=== PATIENT | female | born 1950 | race Caucasian/White ===

== ENCOUNTER 2019-08-07 08:20 | Outpatient (CLI) | payer MEDICARE, SELFPAY ==
--- NOTE | ~2019-08-07 | XR_ITS ---
EXAMINATION: XR abdomen/kub 1V INDICATION: Microscopic hematuria TECHNIQUE: Supine views of the abdomen were obtained on 2 radiographs. COMPARISON: 05/23/2008 FINDINGS: There are phleboliths of the left pelvis. The bowel gas pattern is normal. There is severe lumbar spondylosis. Advanced osteoarthritis is noted in the left hip. IMPRESSION: 1. No radiographic correlate for the patient's symptoms. Reviewed, dictated and finalized at location A.
--- NOTE | ~2019-08-07 | CT_ITS ---
EXAMINATION: CT abdomen pelvis wo/w con DATE: 08/07/2019 09:11 INDICATION: Microscopic hematuria TECHNIQUE: Computed tomography (CT) of the abdomen and pelvis was performed without intravenous contr ast. CT of the abdomen and pelvis was then performed with a total of 130 mL Omnipaque 350 intravenous contrast using a double-bolus technique for simultaneous opacification of the renal parenchyma and r enal collecting system. The dose-length product (DLP) was 2599.48 mGy-cm. Automated exposure control and iterative reconstruction technique were employed. COMPARISON: 05/23/2008 FINDINGS: Minimal dependent atelectasis is present in the lung bases. The heart size is normal. The l iver, spleen, pancreas, gallbladder, and adrenal glands are normal. Proteinaceous cysts of the kidney s measure up to 2.2 cm on the left. 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 No stones are identified in the kidneys, ureters, or bladder. There is no hydronephrosis or hydroureter. No suspici ous renal or urothelial lesion is identified. Gas in the urinary bladder likely reflects recent instr umentation. No pathologically enlarged abdominal or pelvic lymph nodes are identified. There is no fr ee intraperitoneal gas or evidence of bowel obstruction. The appendix is normal. Calcified uterine fi broids are noted. There is advanced left hip osteoarthritis. Mild to moderate right hip osteoarthriti s is noted. There is severe lumbar spondylosis. IMPRESSION: 1. No suspicious renal or urothelial lesion seen, no hydronephrosis, no hydroureter, and no urinary t ract calculi. 2. Bilateral duplicated collecting systems. Reviewed, dictated and finalized at location A. IMPRESSION: 1. No suspicious renal or urothelial lesion seen, no hydronephrosis, no hydrour eter, and no urinary tract calculi. 2. Bilateral duplicated collecting systems.
[2019-08-07 08:48] LABS: Estimated Glomerular Filt Rate > 60
== END 2019-08-07 08:21 | disposition home or self-care (01) ==
PROVIDERS: PCP Family Medicine; Visit Provider Urology
DX: R31.29 Other microscopic hematuria (principal)
CPT/HCPCS: 36415; 74018; 74178; Q9967

== ENCOUNTER 2019-10-30 13:48 | Outpatient (CLI) | payer MEDICARE, SELFPAY ==
--- NOTE | 2019-10-30 14:41 | ECG_ITS ---
Measurements Intervals [place] Rate: 64 P: 11 OH: 188 QRS: -4 QRSD: 89 T: 46 QT: 392 QTc: 406 Interpretive Statements SINUS RHYTHM DELAYED PRECORDIAL R/S TRANSITION MINIMAL Q WAVES- INFERIOR LEADS BORDERLINE ECG Electronically Signed On 10-30-2019 15:38:36 CDT by Dawood Rushing D.O.
[2019-10-30 15:06] LABS: Basophils Absolute Auto 0.1 K/mm3 (0.0-0.1); Basophils Percent Auto 0.9 % (0.2-1.2); Eosinophils Absolute Auto 0.3 K/mm3 (0-0.3); Eosinophils Percent Auto 4.3 % (0-4.4); Hematocrit 42.2 % (37.0-47.0); Hemoglobin 14.1 g/dL (12.0-15.0); Immature Granulocyte Absolute 0.01 K/mm3 (0.00-0.031); Immature Granulocyte Percent A 0.2 % (0-0.5); Lymphocytes Absolute Auto 1.44 K/mm3 (0.9-3.2); Lymphocytes Percent Auto 22.2 % (18.3-44.2); Mean Corpuscular HGB Conc 33.4 g/dl (32-36); Mean Corpuscular Volume 95.7 fl (80-100); Mean Platelet Volume 10.8 fl (7.4-10.4); Monocytes Absolute Auto 0.7 K/mm3 (0.1-0.6); Monocytes Percent Auto 11.4 % (2.6-8.5); Platelet Count Result 251 k/mm3 (150-375); Red Blood Count 4.41 M/mm3 (4.2-5.4); Red Cell Distribution Width 12.5 % (11.5-14.5); White Blood Count 6.5 K/mm3 (4.5-10.0)
[2019-10-30 15:13] LABS: Albumin Level 4.6 g/dL (3.5-5.1); Hemoglobin A1C 5.7 % (<5.7)
[2019-10-30 15:15] LABS: Blood Urea Nitrogen 27 mg/dL (7-17); Calcium 9.6 mg/dL (8.4-10.2); Carbon Dioxide 31 mmol/L (22-30); Chloride 102 mmol/L (98-107); Estimated Glomerular Filt Rate 50; Glucose 88 mg/dL (65-105); Potassium 3.9 mmol/L (3.4-5.0); Sodium 141 mmol/L (137-145)
[2019-10-30 15:16] LABS: Urine Cotinine NEGATIVE
== END 2019-10-30 13:49 | disposition home or self-care (01) ==
LOC: ANHSURGERY 13:52
PROVIDERS: Anesthesiology; PCP Family Medicine; Visit Provider Orthopaedic Surgery
DX: M16.12 Unilateral primary osteoarthritis, left hip (principal); I10 Essential (primary) hypertension; R94.31 Abnormal electrocardiogram [ECG] [EKG]
CPT/HCPCS: 36415; 80048; 80307; 82040; 83036; 85025; 86850; 86900; 86901; 93005

== ENCOUNTER 2019-11-06 00:57 | Outpatient (CLI) | payer MEDICARE, SELFPAY ==
[2019-11-06 19:21] LABS: SARS-CoV-2 RNA PCR Negative
== END 2019-11-06 00:58 | disposition home or self-care (01) ==
LOC: ANHCOVIDDT 00:57
PROVIDERS: PCP Family Medicine; Visit Provider Orthopaedic Surgery
DX: Z01.812 Encounter for preprocedural laboratory examination (principal); Z11.59 Encounter for screening for other viral diseases
CPT/HCPCS: 87635; C9803; U0003

== ENCOUNTER 2019-11-08 02:27 | Day surgery (SDC) | payer MEDICARE, SELFPAY ==
[2019-10-30 13:58] VITALS: BMI 36.3
[2019-10-30 14:43] VITALS: BP 145/76; PULSE 70; RESP 18; TEMP 36.8; O2SAT 98
--- NOTE | 2019-11-01 09:57 | PM.IMHP ---
H&P: HPI History of Present Illness Chief complaint: OA Left Hip Narrative: Carolyn Davidson is a 69 year old female who sees Dr. Godwin regarding her left hip. The patient has a chronic ongoing history of pain localized left hip and groin that radiates into her thigh. It is worse with activity somewhat relieved by rest. The patient has start-up pain rest pain and night pain, notes she can not stand or walk for long periods and has trouble getting around. She notes limitation of motion and her ability to go about her daily activities that she would like. The patient has failed a course of conservative measures including anti-inflammatories and activity modification without significant long-term relief. X-rays at this time show advanced primary osteoarthritis in the left hip joint. At this point the patient has discuss further treatment options in detail with Dr. Godwin including risks benefits limitations and alternatives of surgery in great detail she would now like to proceed with a left total hip arthroplasty. Review of Systems Review of Systems: All systems reviewed & are unremarkable except as noted in HPI and below PMFSH Past Medical History Medical History Arthritis Benign essential HTN Chronic pain GERD (gastroesophageal reflux disease) Mixed hyperlipidemia OAB (overactive bladder) Presence of bilateral total knee joint prostheses Surgical History Surgical History History of bilateral knee arthroplasty Family History Family History Mother Hypertension, Onset Age: 61 Acute myocardial infarction, Onset Age: 61 Family history of arthritis, Onset Age: 61 Sibling Patient's sister is in good health Patient's brother is in good health Father Family history of malignant neoplasm, Onset Age: 49 Social History Social History Smoking status: Never smoker Second hand tobacco smoke exposure: No Additional smoking assessment comments: DENIES ANY FORM OF TOBACCO USE Alcohol intake: current Substance use: never Substance use type: does not use Gender identity (if verbalized by the patient): Female Spiritual care concerns: No Meds Home Medications and Allergies Home Medications Medication Instructions Recorded Confirmed Type amlodipine 5 mg-benazepril 20 mg 1 cap PO DAILY 09/05/19 10/30/19 History capsule hydrochlorothiazide 25 mg tablet 25 mg PO DAILY 09/05/19 10/30/19 History multivit with 1 tablet PO DAILY 09/05/19 10/30/19 History vydpknwr-ilwj-WX-lutein 8 mg iron-400 mcg-300 mcg tablet omega-3 fatty acids 1,250 mg 1,250 mg PO DAILY 09/05/19 10/30/19 History capsule trazodone 50 mg tablet 50 mg PO .QHS tablet 09/05/19 10/30/19 History meloxicam 15 mg tablet 15 mg PO DAILY #90 tablet 09/12/19 10/30/19 Rx omeprazole 40 mg capsule,delayed 40 mg PO DAILY #90 cap 10/10/19 10/30/19 Rx release atorvastatin 20 mg PO HS 10/30/19 10/30/19 History calcium carbonate [Tums] 200 mg PO BID 10/30/19 10/30/19 History tramadol 50 mg PO BID PRN 10/30/19 10/30/19 History Allergies Allergy/AdvReac Type Severity Reaction Status Date / Time No Known Allergies Allergy Unverified 10/30/19 13:59 Exam Narrative: Exam Narrative: The patient is a well-developed well-nourished female no acute distress. She is alert and oriented x3. Normal mood and affect. HEENT exam within normal limits. Heart regular rate rhythm. Lungs clear auscultation. Abdomen benign. Extremities showed the patient's left hip to be painful with manipulation range of motion. She has limited internal external rotation pain with extremes of motion. She is noted to have a positive Stinchfield positive KIRSTEN exam. Patient walks with a mild limp because of her left groin pain. N
[2019-11-08] VITALS (16 sets, daily range): BP systolic 111–170; BP diastolic 60–93; PULSE 58–89; RESP 10–20; TEMP 35.7–36.6; O2SAT 93–100; BMI 35.9
--- NOTE | ~2019-11-08 | XR_ITS ---
XR surgery orthopedic DATE: 11/08/2019 09:01 INDICATION: Left total hip replacement TECHNIQUE: 2 AP intraoperative left hip views COMPARISON: None FINDINGS: Status post left femoral head and neck resection and left total hip replacement. There is e xpected operative subcutaneous emphysema. IMPRESSION: Left total hip arthroplasty Reviewed, dictated and finalized at Location A. Reviewed, dictated and finalized at location B. IMPRESSION: Left total hip arthroplasty
[2019-11-08] MEDS: LACTATED RINGERS 1,000 ML 30 ML IV CONT ×2 (06:30→09:38)
--- NOTE | 2019-11-08 06:49 | WPDANESEPPF ---
Anes - Initial Pre Proc Eval Procedure: Operation Date: 11/08/19 07:30 Proposed Procedures p Left Total Hip Arthroplasty - Carloz Godwin MD Date/Time: 11/08/19 06:49 Surgeon: Carloz Godwin MD Pre Op Diagnosis: OA Left Hip Patient Data Age: 69 Gender: F Height: 5 ft 8 in Weight: 107 kg Last Vital Signs Temp 36.2 C L 11/08/19 06:15 Pulse 73 11/08/19 06:15 Resp 18 11/08/19 06:15 BP 153/77 H 11/08/19 06:15 Pulse Ox 96 11/08/19 06:15 Allergies Allergy/AdvReac Type Severity Reaction Status Date / Time No Known Allergies Allergy Unverified 10/30/19 13:59 Home Medications Medication Instructions Recorded Confirmed Type amlodipine 5 mg-benazepril 20 mg 1 cap PO DAILY 09/05/19 10/30/19 History capsule hydrochlorothiazide 25 mg tablet 25 mg PO DAILY 09/05/19 10/30/19 History multivit with 1 tablet PO DAILY 09/05/19 10/30/19 History rwigmcrx-gubu-PC-lutein 8 mg iron-400 mcg-300 mcg tablet omega-3 fatty acids 1,250 mg 1,250 mg PO DAILY 09/05/19 10/30/19 History capsule trazodone 50 mg tablet 50 mg PO .QHS tablet 09/05/19 10/30/19 History meloxicam 15 mg tablet 15 mg PO DAILY #90 tablet 09/12/19 10/30/19 Rx omeprazole 40 mg capsule,delayed 40 mg PO DAILY #90 cap 10/10/19 10/30/19 Rx release atorvastatin 20 mg PO HS 10/30/19 10/30/19 History calcium carbonate [Tums] 200 mg PO BID 10/30/19 10/30/19 History tramadol 50 mg PO BID PRN 10/30/19 10/30/19 History Patient hx anesthesia problems: none Family hx anesthesia problems: none PMFSH Past Medical History Medical History Arthritis Benign essential HTN Chronic pain GERD (gastroesophageal reflux disease) Mixed hyperlipidemia OAB (overactive bladder) Presence of bilateral total knee joint prostheses Surgical History Surgical History History of bilateral knee arthroplasty Family History Family History Mother Hypertension, Onset Age: 61 Acute myocardial infarction, Onset Age: 61 Family history of arthritis, Onset Age: 61 Sibling Patient's sister is in good health Patient's brother is in good health Father Family history of malignant neoplasm, Onset Age: 49 Social History Social History Smoking status: Never smoker Second hand tobacco smoke exposure: No Additional smoking assessment comments: DENIES ANY FORM OF TOBACCO USE Alcohol intake: current Alcohol use details: ONE DRINK PER MONTH DAIQUIRI Substance use: never Substance use type: does not use Living arrangements: with family Gender identity (if verbalized by the patient): Female Spiritual care concerns: No Anes - Eval Final PreProcedure Day of Procedure 11/08/19 06:49 Patient weight: obese Heart: regular rate and rhythm Lungs: clear to auscultation Airway: Mallampati scale class II Neurological: alert and oriented Last oral intake: >/= 8 hours ASA classification: III Emergent: no Anesthetic plan: proceed Anesthesia type and monitoring: general ETT and standard monitoring Informed Consent: The patient's anesthetic plan and its attendant risks and benefits were discussed with the patient/family/POA. Questions were solicited and answers provided to the satisfaction of the patient/family/POA.
[2019-11-08] MEDS: KETOROLAC 15 MG/ML VIAL (*BKC) IV PUSH (06:50)
[2019-11-08] MEDS: TRANEXAMIC ACID 1,000MG/ISO100 1,000 MG/100 ML BAG 200 MG IVPB (06:50)
[2019-11-08] MEDS: ACETAMINOPHEN 500 MG TABLET 1000 MG PO (06:50)
--- NOTE | 2019-11-08 07:05 | WPDHPUPDATE1 ---
History and Physical Update Update Date/Time: 11/08/19 07:05 History and Physical has been reviewed, including an updated exam of the patient. There are NO changes in the patient's condition. Risks, benefits, and alternatives have been discussed and questions answered. Patient agrees to proceed with procedure.
[2019-11-08] MEDS: ceFAZolin 2 GM/D5W 50 ML 2 GM/50 ML BAG IVPB (07:21)
--- NOTE | 2019-11-08 08:56 | PM.PROC ---
Procedure Note - Detailed Date of procedure: 11/08/19 Pre-op diagnosis: OA Left Hip Post-op diagnosis: same Procedure performed: [Left] total hip arthroplasty Description of procedure: Patient was brought to the operating room and anesthetic was administered. The patient was placed with the [side] up and steriley prepped and draped in the usual manner. Longitudinal incision was done, dissection carried down to the fascia. A Hardinge type approach was used and the femoral head was dislocated anteriorly. Femoral head was removed a finger breath above the lesser trochanter. The acetabulum was serially reamed to accept a [54] component. This was impacted into place and secured with 2 25mm screws. A high wall liner was placed. The femur was reamed and broached to accept a [10] component which was impacted into place. A plus [3] ball and neck were placed and the hip was put through full range of motion. The hip was noted to be stable. The wounds were then closed in a layer fashion using #5 ethibond, 2 vicryl, 2-0 vicryl and vida. Patient left the operating room in satisfactory condition. Anesthesia: GETA Surgeon: Carloz Godwin MD Sanitation Worker Cleaning Machinery: Duc Schaefer Estimated blood loss (mL): 600 Drains: No Packing: No Pathology: none sent Complications: No immediate complications Condition: stable Disposition: PACU Findings: Arthritis
--- NOTE | 2019-11-08 10:42 | SUR.PHASEI ---
[address] kaur aware of continued pain with fentanyl given,orders received, dilaudid given for pain.
[2019-11-08 12:18] LABS: Hematocrit 39.1 % (37.0-47.0); Hemoglobin 13.2 g/dL (12.0-15.0)
[2019-11-08] MEDS: DEXTROSE 5%/0.45% SOD CHL 1,000 ML 80 ML IV CONT (12:48)
[2019-11-08] MEDS: MORPHINE SULFATE 4 MG/ML INJ 3 MG IV PUSH (15:00)
[2019-11-08] MEDS: amLODIPine BESYLATE 5 MG TABLET PO (16:15)
[2019-11-08] MEDS: DOCUSATE SODIUM 100 MG CAPSULE PO (16:15)
[2019-11-08] MEDS: lisinopriL 20 MG TABLET PO (16:15)
[2019-11-08] MEDS: hydroCHLOROthiazide 25 MG TABLET PO (16:15)
[2019-11-08] MEDS: CELECOXIB 200 MG CAPSULE PO (16:15)
--- NOTE | 2019-11-08 16:51 | PM.IMCN ---
Assessment and Plan Assessment and plan (1) History of total left hip arthroplasty: Code(s): Z96.642 - Presence of left artificial hip joint Status: Acute Assessment and Plan: per Dr. Enrique today. DVT prophylaxis per Dr. Godwin. Patient has SCDs ordered. Patient plans to go home and rehab. Pain management per Ortho. Patient is already been up in the chair. She is also on Xarelto. (2) Benign essential HTN: Code(s): I10 - Essential (primary) hypertension Status: Acute Assessment and Plan: Hydrochlorothiazide has continued as well as lisinopril. Monitor basic metabolic panel please (3) Mixed hyperlipidemia: Code(s): E78.2 - Mixed hyperlipidemia Status: Acute Assessment and Plan: her Lipitor has been continued. (4) GERD (gastroesophageal reflux disease): Code(s): K21.9 - Gastro-esophageal reflux disease without esophagitis Status: Acute Assessment and Plan: No problems with occurred at this time. HPI Data of Consult Consult date: 11/08/19 Requesting Physician: Carloz Godwin MD Primary Care Provider: Antonietta Garza MD Consult Narrative Narrative: Carolyn Davidson is a 69 year old female who has suffered from severe osteoarthritis. The patient has had bilateral knee replacements in the past and did very well with the knees. The patient tells patient both her knees and at the same time. The patient has been having ongoing chronic pain localized left hip growing that radiated to the thigh. The pain was worse with activity and improved with rest. The patient stated that she did try some steroid injections but that did not seem to help for very long. She also tried anti-inflammatories and modifying her activity. Her x-rays were showing some advanced primary osteoarthritis in left joint hip. Patient underwent a left total hip arthroplasty per Dr. Godwin today. I thank Dr. Godwin for this consult. Patient had just received IV pain medication and felt a little sleepy. Patient was sitting up in the chair answering questions without difficulty. Please see operative report. Date of service 11/08/2019 Thank you for this consultation Review of Systems Review of Systems: All systems reviewed & are unremarkable except as noted in HPI and below Constitutional: Constitutional: Reports as per HPI and Reports no additional constitutional complaints Eyes: Eyes: Reports as per HPI and Reports no additional eye complaints ENT: Reports system reviewed and no additional complaints, except as documented and Reports Normal hearing present Cardiovascular: Cardiovascular: Reports no additional cardiovascular complaints Respiratory: Respiratory: Reports no additional respiratory complaints and Reports no additional respiratory complaints Gastrointestinal: Gastrointestinal: Reports as per HPI and Reports no additional gastrointestinal complaints Musculoskeletal: Musculoskeletal: Reports no additional musculoskeletal complaints Integumentary/Breasts: Skin/Breast: Reports system reviewed and no additional complaints, except as docu and Reports as per HPI Neurologic: Reports system reviewed and no additional complaints, except as documented, Reports as per HPI and Reports Normal hearing present Psychiatric: Psychiatric: Reports no additional psychiatric complaints and Reports as per HPI Endocrine: Endocrine: Reports no additional endocrine complaints Hematologic/Lymphatic: Hematologic/Lymphatic: Reports no additional hematologic/lymphatic complaints Allergic/Immunologic: Allergic/Immunologic: Reports no additional allergic/immunologic complaints PMFSH Past Medical History Medical History (Updated 11/08/19 @ 16:55 by Mimi Marmolejo NP) Arthritis Benign essential HTN Chronic pain GERD (gastroesophageal reflux disease) Mixed hyperlipidemia Normal colonoscopy OAB (overactive bladder) Presence of bilateral total knee
[2019-11-08] MEDS: RIVAROXABAN 10 MG TABLET PO (17:34)
[2019-11-08] MEDS: ATORVASTATIN 20 MG TABLET PO (22:04)
[2019-11-09 01:44] VITALS: BP 132/66; PULSE 75; RESP 20; TEMP 36.6; O2SAT 95
[2019-11-09 05:44] VITALS: BP 137/61; PULSE 72; RESP 20; TEMP 36.7; O2SAT 99
[2019-11-09 06:02] LABS: Basophils Percent Auto 0.2 % (0.2-1.2); Eosinophils Percent Auto 0.2 % (0-4.4); Hematocrit 36.9 % (37.0-47.0); Hemoglobin 12.3 g/dL (12.0-15.0); Immature Granulocyte Absolute 0.07 K/mm3 (0.00-0.031); Immature Granulocyte Percent A 0.5 % (0-0.5); Lymphocytes Absolute Auto 1.46 K/mm3 (0.9-3.2); Lymphocytes Percent Auto 11.5 % (18.3-44.2); Mean Corpuscular HGB Conc 33.3 g/dl (32-36); Mean Corpuscular Hemoglobin 31.9 pg (26-34); Mean Corpuscular Volume 95.8 fl (80-100); Mean Platelet Volume 11.3 fl (7.4-10.4); Monocytes Absolute Auto 1.1 K/mm3 (0.1-0.6); Monocytes Percent Auto 8.8 % (2.6-8.5); Neutrophils Percent Auto 78.8 % (45.5-73.1); Platelet Count Result 252 k/mm3 (150-375); Red Blood Count 3.85 M/mm3 (4.2-5.4); Red Cell Distribution Width 12.5 % (11.5-14.5); White Blood Count 12.7 K/mm3 (4.5-10.0)
[2019-11-09 06:20] LABS: Anion Gap 11.7 mmol/L (7-16); Blood Urea Nitrogen 25 mg/dL (7-17); Calcium 9.4 mg/dL (8.4-10.2); Carbon Dioxide 30 mmol/L (22-30); Chloride 101 mmol/L (98-107); Estimated CRCL calculation 62 ml/min; Estimated Glomerular Filt Rate 55; Glucose 102 mg/dL (65-105); Potassium 3.7 mmol/L (3.4-5.0); Sodium 139 mmol/L (137-145)
[2019-11-09] MEDS: hydroCHLOROthiazide 25 MG TABLET PO (09:00)
[2019-11-09] MEDS: lisinopriL 20 MG TABLET PO (09:00)
[2019-11-09] MEDS: amLODIPine BESYLATE 5 MG TABLET PO (09:00)
[2019-11-09] MEDS: DOCUSATE SODIUM 100 MG CAPSULE PO ×2 (09:00→17:24)
[2019-11-09] MEDS: CELECOXIB 200 MG CAPSULE PO (09:00)
--- NOTE | 2019-11-09 09:40 | WPDANESPN ---
Anes - Prog Note Post-Op Date/Time: 11/09/19 09:40 Cardiovascular status: normal Respiratory status: normal Airway patency: baseline Mental status: baseline Post-Op hydration status: normal Vital Signs: Last Vital Signs Temp 36.7 C 11/09/19 05:44 Pulse 72 11/09/19 05:44 Resp 20 11/09/19 05:44 BP 137/61 11/09/19 05:44 Pulse Ox 99 11/09/19 05:44 I/O: Intake & Output 11/08/19 11/09/19 11/09/19 23:59 07:59 15:59 Intake Total 240 260 Balance 240 260 Laboratory Tests 11/09/19 05:24 11/09/19 05:24 11/08/19 11/09/19 11/09/19 12:10 05:24 05:24 WBC 12.7 H RBC 3.85 L Hgb 13.2 12.3 Hct 39.1 36.9 L MCV 95.8 MCH 31.9 MCHC 33.3 RDW 12.5 Plt Count 252 MPV 11.3 H Immature Gran % (Auto) 0.5 Neut % (Auto) 78.8 H Lymph % (Auto) 11.5 L [place] % (Auto) 8.8 H Eos % (Auto) 0.2 Baso % (Auto) 0.2 Lymph # (Auto) 1.46 [place] # (Auto) 1.1 H Eos # (Auto) 0.0 Baso # (Auto) 0.0 Abs Immat Gran (auto) 0.07 H Absolute Neuts (auto) 10.0 H Absolute Nucleated RBC 0.0 Nucleated RBC % 0.0 Sodium 139 Potassium 3.7 Chloride 101 Carbon Dioxide 30 Anion Gap 11.7 BUN 25 H Creatinine 1.00 Estim Creat Clear Calc 62 Estimated GFR 55 L Glucose 102 Calcium 9.4 Post-procedural complaints: none Patient Feedback: Patient satisfied with anesthetic care.
[2019-11-09 10:00] VITALS: BP 149/71; PULSE 80; RESP 20; TEMP 37.4; O2SAT 97
--- NOTE | 2019-11-09 11:07 | PM.IMPN ---
Progress Note: A&P Assessment and Plan (1) History of total left hip arthroplasty: Code(s): Z96.642 - Presence of left artificial hip joint Status: Acute Assessment and Plan: S/p left hip arthroplasty by Dr. Godwin on 11/08/19. She appears to have tolerated the procedure well. Dressing changes, weight bearing, and DVT ppx per Dr. Godwin. Pain well controlled on present management. Continue PT/OT (2) Benign essential HTN: Code(s): I10 - Essential (primary) hypertension Status: Acute Assessment and Plan: BP evaluated and has been well controlled, especially given pain. Continue HCTZ and lisinopril. Continue to monitor BP closely (3) Mixed hyperlipidemia: Code(s): E78.2 - Mixed hyperlipidemia Status: Acute Assessment and Plan: Continue atorvastatin (4) GERD (gastroesophageal reflux disease): Qualifiers: Esophagitis presence: esophagitis presence not specified Qualified Code(s): K21.9 - Gastro-esophageal reflux disease without esophagitis Code(s): K21.9 - Gastro-esophageal reflux disease without esophagitis Status: Acute Assessment and Plan: She denies any present symptoms of GERD. Begin pepcid (5) Constipation due to opioid therapy: Code(s): K59.03 - Drug induced constipation; T40.2X5A - Adverse effect of other opioids, initial encounter Status: Acute Assessment and Plan: She has not had a BM in 3 days. Current opioid therapy likely contributing. She denies abdominal pain or distention and is passing gas. Continue Colace Will also add scheduled miralax. Subjective Date/time seen: 11/09/19 11:07 Interval history: Date of service: 11/09/2019 She reports she is feeling well today. She tolerated her procedure well and her pain has been well controlled. It is currently 2/10. She participated in PT today and notes that she had more pain with that. Other than that, she has no additional concerns. She felt a little nauseous after receiving morphine, but this has subsided. She denies N/V, fever, chills, dizziness, lightheadedness, abdominal pain, or bloating. She has not had a BM since 11/05, but she is passing gas. She denies dysuria, hematuria, urgency, frequency, blood in her stools, any other bleeding or bruising, shortness of breath, chest pain, or cough. She has been eating well. Review of Systems Review of Systems: Narrative: A 12 point review of systems was reviewed with pertinent positives and negatives as per HPI. Exam Narrative: Exam Narrative: Ms. Rasheed is examined alone today. She is a well nourished 69 year old female who is lying supine in bed. She appears comfortable and is in NARD. HR 72, BP 137/61, RR 20, T 98.1, 99% on room air Neuro: awake, alert and oriented x4, speech clear, no focal neuro deficits noted HEENMT: normocephalic, atraumatic, EOMI, sclerae anicteric, moist oral mucosa, tongue midline Neck: supple, no lymphadenopathy Respiratory: clear to auscultation bilaterally, nonlabored breathing Cardio: regular rate, regular rhythm with S1-S2 Abdomen: protuberant, nondistended, normoactive bowel sounds,, soft, nontender to palpation Extremities: no edema, erythema, cyanosis, clubbing, or tenderness to palpation, DP pulses 2+ bilaterally Skin: no rashes or lesions, warm and dry Psych: appropriate mood and affect, judgement and insight intact Objective Data Vital Signs Vital Signs: Vital Signs - 24 hr 11/08/19 11:19 11/08/19 11:30 11/08/19 11:45 Temperature Pulse Rate 63 68 67 Respiratory Rate 13 14 18 Blood Pressure 111/93 H 143/71 H 136/73 Pulse Oximetry 100 100 98 11/08/19 11:59 11/08/19 12:14 11/08/19 12:44 Temperature 96.8 F L 96.2 F L 96.8 F L Pulse Rate 67 65 70 Respiratory Rate 14 14 12 Blood Pressure 136/73 170/79 H 152/76 H Pulse Oximetry 95 97 93 11/08/19 13:44 11/08/19 17:44 11/08/19 21:44 Temperature 96.9 F
[2019-11-09] MEDS: polyethylene glycoL 3350 17 GM POWD.PACK PO (12:03)
[2019-11-09 13:44] VITALS: BP 133/72; PULSE 71; RESP 19; TEMP 36.8; O2SAT 98
--- NOTE | 2019-11-09 15:33 | PM.PNORT ---
Subjective Subjective Date/Time Seen: 11/09/19 15:33 Objective Data Vital Signs Vital Signs: Vital Signs - 24 hr 11/08/19 17:44 11/08/19 21:44 11/09/19 01:44 Temperature 36.6 C 36.6 C 36.6 C Pulse Rate 89 89 75 Respiratory Rate 20 20 20 Blood Pressure 121/60 121/60 132/66 Pulse Oximetry 99 99 95 11/09/19 05:44 11/09/19 10:00 Temperature 36.7 C 37.4 C Pulse Rate 72 80 Respiratory Rate 20 20 Blood Pressure 137/61 149/71 H Pulse Oximetry 99 97 Intake/Output Intake/Output: Intake & Output 11/06/19 11/07/19 11/08/19 11/09/19 23:59 23:59 23:59 23:59 Intake Total 1190 740 Balance 1190 740 Meds/Results Medications: Active Medications Generic Name Dose Route Start Last Admin Trade Name Freq PRN Reason Stop Dose Admin Hydrocodone Bitart/Acetaminophen 1 tab 11/08/19 11:59 11/09/19 13:01 [place] 7.5-325 Mg PO 1 tab Q3H PRN Administration Pain Rated 4-6 Amlodipine Besylate 5 mg 11/08/19 09:00 11/09/19 09:00 Norvasc PO 5 mg DAILY AARON Administration Atorvastatin Calcium 20 mg 11/08/19 21:00 11/08/19 22:04 Lipitor PO 20 mg HS AARON Administration Celecoxib 200 mg 11/08/19 11:59 11/09/19 09:00 Celebrex PO 200 mg DAILY AARON Administration Docusate Sodium 100 mg 11/08/19 11:59 11/09/19 09:00 Colace Capsule PO 100 mg BID AARON Administration Famotidine 20 mg 11/09/19 21:00 Pepcid PO Q12HR AARON Hydrochlorothiazide 25 mg 11/08/19 11:59 11/09/19 09:00 Hydrochlorothiazide PO 25 mg DAILY AARON Administration Lisinopril 20 mg 11/08/19 09:00 11/09/19 09:00 Prinivil PO 12/09/19 09:01 20 mg DAILY AARON Administration Magnesium Hydroxide 30 ml 11/08/19 11:59 Milk Of Magnesia PO BID PRN Constipation Morphine Sulfate 3 mg 11/08/19 11:59 11/08/19 15:00 Morphine Sulfate Inj IV PUSH 3 mg Q3H PRN Administration Pain Rated 7-10 Naloxone HCl 0.1 mg 11/08/19 11:59 Narcan IV PUSH Q2M PRN Opiate Reversal Polyethylene Glycol 17 gm 11/09/19 11:25 11/09/19 12:03 Miralax PO 17 gm QAM [facility] Administration Rivaroxaban 10 mg 11/08/19 17:00 11/08/19 17:34 Xarelto PO 12/12/19 17:01 10 mg DAILY@1700 [facility] Administration Radiology Results: ITS Impressions Intraoperative X-Ray 11/08/19 09:26 IMPRESSION: Left total hip arthroplasty Labs Labs: Laboratory Results - last 24 hr 11/09/19 11/09/19 05:24 05:24 WBC 12.7 H RBC 3.85 L Hgb 12.3 Hct 36.9 L MCV 95.8 MCH 31.9 MCHC 33.3 RDW 12.5 Plt Count 252 MPV 11.3 H Immature Gran % (Auto) 0.5 Neut % (Auto) 78.8 H Lymph % (Auto) 11.5 L [place] % (Auto) 8.8 H Eos % (Auto) 0.2 Baso % (Auto) 0.2 Lymph # (Auto) 1.46 [place] # (Auto) 1.1 H Eos # (Auto) 0.0 Baso # (Auto) 0.0 Abs Immat Gran (auto) 0.07 H Absolute Neuts (auto) 10.0 H Absolute Nucleated RBC 0.0 Nucleated RBC % 0.0 Sodium 139 Potassium 3.7 Chloride 101 Carbon Dioxide 30 Anion Gap 11.7 BUN 25 H Creatinine 1.00 Estim Creat Clear Calc 62 Estimated GFR 55 L Glucose 102 Calcium 9.4 Quality VTE Prophylaxis VTE prophylaxis: mechanical ordered and pharmacologic ordered
[2019-11-09] MEDS: RIVAROXABAN 10 MG TABLET PO (17:24)
== END 2019-11-09 18:08 | disposition home or self-care (01) ==
LOC: ANHSURGERY 05:55 → ANH2MED 12:05
PROVIDERS: PCP Family Medicine; Visit Provider Orthopaedic Surgery
PROC: (CPT 27130; principal; 2019-11-08 07:30)
DX: M16.12 Unilateral primary osteoarthritis, left hip (principal); I10 Essential (primary) hypertension; E78.2 Mixed hyperlipidemia; K21.9 Gastro-esophageal reflux disease without esophagitis; G89.29 Other chronic pain; N32.81 Overactive bladder; K59.03 Drug induced constipation; T40.2X5A Adverse effect of other opioids, initial encounter
CPT/HCPCS: 27130; 36415; 80048; 85014; 85018; 85025; 97110; 97116; 97161; 97165; 97530; A9270; C1776; J0171; J0330; J0690; J1100; J1170; J1885; J2250; J2270; J2405; J2704; J2795; J3010; J3370; J7120

== ENCOUNTER → 2019-12-27 10:15 | Outpatient (CLI) | payer MEDICARE, SELFPAY ==
--- NOTE | ~2019-12-27 | MM_ITS ---
EXAMINATION: MM screening melvin BI w maciel HISTORY: Screening TECHNIQUE: Craniocaudal and mediolateral oblique 3-D tomosynthesis images were obtained and synthetic 2-D images were generated. CAD analysis was submitted and interpreted. COMPARISON: Comparison to multiple prior studies sequentially, with oldest reviewed study dated 04/2012. BREAST PARENCHYMAL COMPOSITION: There are scattered areas of fibroglandular density. FINDINGS: There is no evidence of suspicious mass, calcification, or architectural distortion to sugg est malignancy in either breast. There has been no suspicious interval change. IMPRESSION: 1. No mammographic evidence of malignancy. 2. Recommend routine screening mammography in one year. BI-RADS Category 1: Negative Reviewed, dictated and finalized at location A.
== END ==
PROVIDERS: PCP Family Medicine; Visit Provider Family Medicine
DX: Z12.31 Encounter for screening mammogram for malignant neoplasm of breast (principal)
CPT/HCPCS: 77063; 77067

== ENCOUNTER 2020-01-05 09:53 | Outpatient (CLI) | payer MEDICARE, SELFPAY ==
[2020-01-05 11:17] LABS: Basophils Absolute Auto 0.1 K/mm3 (0.0-0.1); Basophils Percent Auto 1.3 % (0.2-1.2); Eosinophils Absolute Auto 0.5 K/mm3 (0-0.3); Eosinophils Percent Auto 7.5 % (0-4.4); Hematocrit 40.4 % (37.0-47.0); Hemoglobin 13.4 g/dL (12.0-15.0); Immature Granulocyte Absolute 0.01 K/mm3 (0.00-0.031); Immature Granulocyte Percent A 0.1 % (0-0.5); Lymphocytes Absolute Auto 1.35 K/mm3 (0.9-3.2); Lymphocytes Percent Auto 20.2 % (18.3-44.2); Mean Corpuscular HGB Conc 33.2 g/dl (32-36); Mean Corpuscular Hemoglobin 31.8 pg (26-34); Mean Platelet Volume 10.7 fl (7.4-10.4); Monocytes Absolute Auto 0.6 K/mm3 (0.1-0.6); Monocytes Percent Auto 9.4 % (2.6-8.5); Neutrophils Absolute Auto 4.1 K/mm3 (1.3-6.7); Neutrophils Percent Auto 61.5 % (45.5-73.1); Platelet Count Result 272 k/mm3 (150-375); Red Blood Count 4.21 M/mm3 (4.2-5.4); White Blood Count 6.7 K/mm3 (4.5-10.0)
[2020-01-05 11:28] LABS: Albumin Level 4.5 g/dL (3.5-5.1)
[2020-01-05 11:32] LABS: Anion Gap 8 mmol/L (8-16); Blood Urea Nitrogen 23 mg/dL (7-17); Calcium 10.3 mg/dL (8.4-10.2); Carbon Dioxide 30 mmol/L (22-30); Chloride 103 mmol/L (98-107); Estimated Glomerular Filt Rate > 60; Glucose 100 mg/dL (65-105); Potassium 4.2 mmol/L (3.4-5.0); Sodium 141 mmol/L (137-145)
[2020-01-05 11:38] LABS: Urine Cotinine NEGATIVE
== END 2020-01-05 09:54 | disposition home or self-care (01) ==
PROVIDERS: Anesthesiology; PCP Family Medicine; Visit Provider Orthopaedic Surgery
DX: M16.11 Unilateral primary osteoarthritis, right hip (principal); Z79.899 Other long term (current) drug therapy
CPT/HCPCS: 36415; 80048; 80307; 82040; 83036; 85025; 86850; 86900; 86901

== ENCOUNTER 2020-01-15 01:02 | Outpatient (CLI) | payer MEDICARE, SELFPAY ==
[2020-01-15 18:01] LABS: SARS-CoV-2 RNA PCR Negative
== END 2020-01-15 01:03 | disposition home or self-care (01) ==
LOC: ANHCOVIDDT 01:02
PROVIDERS: PCP Family Medicine; Visit Provider Orthopaedic Surgery
DX: Z01.812 Encounter for preprocedural laboratory examination (principal); Z20.828 Contact with and (suspected) exposure to other viral communicable diseases
CPT/HCPCS: 87635; C9803; U0003

== ENCOUNTER 2020-01-17 01:44 | Day surgery (SDC) | payer MEDICARE, SELFPAY ==
[2020-01-05 10:10] VITALS: BMI 36.7
[2020-01-05 10:11] VITALS: BP 168/86; PULSE 74; RESP 18; TEMP 37.2; O2SAT 96
--- NOTE | 2020-01-12 14:05 | PM.IMHP ---
H&P: HPI History of Present Illness Date/Time: 01/12/20 14:05 Chief complaint: OA right hip Narrative: Carolyn Davidson is a 69 year old female who presents with right hip pain. This is due to primary osteoarthritis in the right hip joint. The patient has pain with ambulation started pain rest pain and night pain the pain is chronic in nature and worsening with time. She has limited motion and function of the hip she can not stand or walk for long periods or go about her daily activities that she would like she has started pain rest pain and night pain despite conservative measures including activity modification anti-inflammatories in time her symptoms continue. X-rays show advanced primary osteoarthritis in the right hip joint. The patient's discuss further treatment options in detail with Dr. Godwin she now to proceed with a right total hip arthroplasty. The patient is status post left total hip arthroplasty is doing well with this and now would like to proceed with the right side. 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 Surgical History Surgical History History of arthroplasty of left ankle History of arthroplasty of left hip History of bilateral knee arthroplasty with the pain S/p bilateral carpal tunnel release Family History Family History Mother Hypertension, Onset Age: 61 Acute myocardial infarction, Onset Age: 61 Family history of arthritis, Onset Age: 61 Sibling Patient's sister is in good health she has osteoarthritis Patient's brother is in good health Father Family history of malignant neoplasm, Onset Age: 49 Social History Social History Social History: the patient lives with her who is a durable power of pipeline systems operator for healthcare. she desires to be a full code. Patient stated that she worked in [employer]. Lifelong nonsmoker. No alcohol marijuana or illicit drugs. The patient does not have any children but has 2 Dogs and 2 cats. Smoking status: Never smoker Second hand tobacco smoke exposure: No Additional smoking assessment comments: DENIES ANY FORM OF TOBACCO USE Alcohol intake: current Substance use: never Substance use type: does not use Gender identity (if verbalized by the patient): Female Spiritual care concerns: No Meds Home Medications and Allergies Home Medications Medication Instructions Recorded Confirmed Type amlodipine 5 mg-benazepril 20 mg 1 cap PO QAM 09/05/19 01/05/20 History capsule multivit with 1 tablet PO DAILY 09/05/19 01/05/20 History lenqxyva-reiw-OW-lutein 8 mg iron-400 mcg-300 mcg tablet omega-3 fatty acids 1,250 mg 1,250 mg PO DAILY 09/05/19 01/05/20 History capsule atorvastatin 20 mg PO HS 10/30/19 01/05/20 History calcium carbonate [Tums] 200 mg PO QAM 10/30/19 01/05/20 History hydrochlorothiazide 25 mg PO QAM 01/05/20 01/05/20 History meloxicam 15 mg PO QAM 01/05/20 01/05/20 History omeprazole 40 mg PO QAM 01/05/20 01/05/20 History tramadol 50 mg PO BID 01/05/20 01/05/20 History trazodone 100 mg PO .QHS 01/05/20 01/05/20 History Allergies Allergy/AdvReac Type Severity Reaction Status Date / Time No Known Allergies Allergy Verified 01/05/20 10:02 Exam Narrative: Exam Narrative: The patient is well-developed well-nourished female no acute distress. She is alert and oriented x3. Normal mood and affect. Hearing and vision intact. HEENT exa
[2020-01-17] VITALS (14 sets, daily range): BP systolic 94–175; BP diastolic 44–82; PULSE 64–103; RESP 10–20; TEMP 35.9–36.9; O2SAT 92–100; BMI 41.1
--- NOTE | ~2020-01-17 | XR_ITS ---
XR surgery orthopedic DATE: 01/17/2020 09:21 INDICATION: Right hip replacement TECHNIQUE: 2 AP views COMPARISON: 11/08/2019 left hip FINDINGS: There is resection of the right femoral head and neck and right total hip arthroplasty. The re is expected postoperative subcutaneous emphysema. Status post left total hip arthroplasty. Severe degenerative disc disease is incidentally noted at L5-S1. Osteopenia IMPRESSION: Postoperative change from right total hip arthroplasty Status post left total hip arthroplasty Severe degenerative disc disease at L5-S1 Osteopenia Reviewed, dictated and finalized at Location [facility]. Reviewed, dictated and finalized at location B.
[2020-01-17] MEDS: LACTATED RINGERS 1,000 ML 30 ML IV CONT ×2 (06:20→09:59)
[2020-01-17] MEDS: ACETAMINOPHEN 500 MG TABLET 1000 MG PO (06:21)
[2020-01-17] MEDS: TRANEXAMIC ACID 1,000MG/ISO100 1,000 MG/100 ML BAG 200 MG IVPB (06:33)
[2020-01-17] MEDS: KETOROLAC 15 MG/ML VIAL (*BKC) IV PUSH (06:44)
--- NOTE | 2020-01-17 06:47 | WPDANESEPPF ---
Anes - Initial Pre Proc Eval Procedure: Operation Date: 01/17/20 07:30 Proposed Procedures p Right Total Hip Arthroplasty - Carloz Godwin MD Date/Time: 01/17/20 06:47 Surgeon: Carloz Godwin MD Pre Op Diagnosis: OA right hip Patient Data Age: 69 Gender: F Height: 5 ft 8 in Weight: 109.6 kg Last Vital Signs Temp 37.2 C 01/05/20 10:11 Pulse 74 01/05/20 10:11 Resp 18 01/05/20 10:11 BP 168/86 H 01/05/20 10:11 Pulse Ox 96 01/05/20 10:11 Allergies Allergy/AdvReac Type Severity Reaction Status Date / Time No Known Allergies Allergy Verified 01/17/20 06:14 Home Medications Medication Instructions Recorded Confirmed Type amlodipine 5 mg-benazepril 20 mg 1 cap PO QAM 09/05/19 01/05/20 History capsule multivit with 1 tablet PO DAILY 09/05/19 01/17/20 History meiflaxp-cpvf-ML-lutein 8 mg iron-400 mcg-300 mcg tablet omega-3 fatty acids 1,250 mg 1,250 mg PO DAILY 09/05/19 01/17/20 History capsule atorvastatin 20 mg PO HS 10/30/19 01/05/20 History calcium carbonate [Tums] 200 mg PO QAM 10/30/19 01/17/20 History hydrochlorothiazide 25 mg PO QAM 01/05/20 01/05/20 History meloxicam 15 mg PO QAM 01/05/20 01/05/20 History omeprazole 40 mg PO QAM 01/05/20 01/05/20 History tramadol 50 mg PO BID 01/05/20 01/05/20 History trazodone 100 mg PO .QHS 01/05/20 01/05/20 History Patient hx anesthesia problems: none Family hx anesthesia problems: none PMFSH Past Medical History Medical History Arthritis Benign essential HTN Chronic pain GERD (gastroesophageal reflux disease) Mixed hyperlipidemia Normal colonoscopy OAB (overactive bladder) Presence of bilateral total knee joint prostheses Surgical History Surgical History History of arthroplasty of left ankle History of arthroplasty of left hip History of bilateral knee arthroplasty with the pain S/p bilateral carpal tunnel release Family History Family History Mother Hypertension, Onset Age: 61 Acute myocardial infarction, Onset Age: 61 Family history of arthritis, Onset Age: 61 Sibling Patient's sister is in good health she has osteoarthritis Patient's brother is in good health Father Family history of malignant neoplasm, Onset Age: 49 Social History Social History Social History: the patient lives with her who is a durable power of assistant prosecuting attorney for healthcare. she desires to be a full code. Patient stated that she worked in [employer]. Lifelong nonsmoker. No alcohol marijuana or illicit drugs. The patient does not have any children but has 2 Dogs and 2 cats. Smoking status: Never smoker Second hand tobacco smoke exposure: No Additional smoking assessment comments: DENIES ANY FORM OF TOBACCO USE Alcohol intake: current Alcohol use details: FEW DRINKS/YEAR Substance use: never Substance use type: does not use Living arrangements: with family Gender identity (if verbalized by the patient): Female Spiritual care concerns: No Anes - Eval Final PreProcedure Day of Procedure 01/17/20 06:47 Patient weight: obese Heart: regular rate and rhythm Lungs: clear to auscultation Airway: Mallampati scale class II Neurological: alert and oriented Last oral intake: >/= 8 hours ASA classification: III Emergent: no Anesthetic plan: proceed Anesthesia type and monitoring: general ETT and standard monitoring Informed Consent: The patient's anesthetic plan and its attendant risks and benefits were discussed with the patient/family/POA. Questions were solicited and answers provided to the satisfaction of the patient/family/POA.
--- NOTE | 2020-01-17 07:18 | WPDHPUPDATE1 ---
History and Physical Update Update Date/Time: 01/17/20 07:18 History and Physical has been reviewed, including an updated exam of the patient. There are NO changes in the patient's condition. Risks, benefits, and alternatives have been discussed and questions answered. Patient agrees to proceed with procedure.
[2020-01-17] MEDS: ceFAZolin 2 GM/D5W 50 ML 2 GM/50 ML BAG IVPB ×3 (07:30→23:29)
--- NOTE | 2020-01-17 09:18 | PM.PROC ---
Procedure Note - Detailed Date of procedure: 01/17/20 Pre-op diagnosis: OA right hip Post-op diagnosis: same Procedure performed: [Right] total hip arthroplasty Description of procedure: Patient was brought to the operating room and anesthetic was administered. The patient was placed with the [side] up and steriley prepped and draped in the usual manner. Longitudinal incision was done, dissection carried down to the fascia. A Hardinge type approach was used and the femoral head was dislocated anteriorly. Femoral head was removed a finger breath above the lesser trochanter. The acetabulum was serially reamed to accept a [54] component. This was impacted into place and secured with 2 25mm screws. A high wall liner was placed. The femur was reamed and broached to accept a [10] component which was impacted into place. A plus [+6] ball and neck were placed and the hip was put through full range of motion. The hip was noted to be stable. The wounds were then closed in a layer fashion using #5 ethibond, 2 vicryl, 2-0 vicryl and vida. Patient left the operating room in satisfactory condition. Anesthesia: GETA Surgeon: Carloz Godwin MD [employer] Mach[employer] Instructor: Duc Schaefer Estimated blood loss (mL): 600 Drains: No Packing: No Pathology: none sent Complications: No immediate complications Condition: stable Disposition: PACU Findings: Arthritis
[2020-01-17] MEDS: fentaNYL CITRATE INJ (*CRX) 100 MCG/2 ML VIAL 25 MCG IV PUSH ×2 (10:31→11:01)
--- NOTE | 2020-01-17 11:08 | SUR.PHASEI ---
Patient's sats drop and so do respirations w/ IV Fentanyl. RN explained to patient that she can't give anymore IV pain meds down here.
--- NOTE | 2020-01-17 11:15 | PC.NURSE ---
This patient, Carolyn Davidson, was admitted to Medical Room 242-01. Patient/family oriented to hospital policies and general routines including ID bracelet, bed and alarms, visiting hours, pain management, procedures, bathroom and other care routines, personal items, smoking policy, room service/diet, and visiting hours. Valuables list has been completed. Information on how to activate the Rapid Response Team has been discussed. Patient/Family are encouraged to report perceived risks to care and to ask questions if they do not understand what they are told or what they should do.
[2020-01-17] MEDS: lisinopriL 20 MG TABLET PO (12:51)
[2020-01-17] MEDS: CELECOXIB 200 MG CAPSULE PO ×2 (12:51→18:52)
[2020-01-17] MEDS: amLODIPine BESYLATE 5 MG TABLET PO (12:51)
[2020-01-17] MEDS: hydroCHLOROthiazide 25 MG TABLET PO (12:51)
[2020-01-17] MEDS: DOCUSATE SODIUM 100 MG CAPSULE PO ×2 (12:51→18:52)
[2020-01-17] MEDS: HYDROcodone/acetaminophen (*CRX) 7.5-325 MG TABLET 1 TAB PO ×2 (12:51→18:52)
[2020-01-17] MEDS: RIVAROXABAN 10 MG TABLET PO (20:46)
[2020-01-17] MEDS: ATORVASTATIN 20 MG TABLET PO (20:46)
[2020-01-18] MEDS: CYCLOBENZAPRINE HCL 10 MG TABLET PO (00:11)
[2020-01-18 01:04] VITALS: BP 147/74; PULSE 85; RESP 20; TEMP 37.1; O2SAT 98
[2020-01-18] MEDS: HYDROcodone/acetaminophen (*CRX) 7.5-325 MG TABLET 1 TAB PO ×3 (01:58→14:34)
[2020-01-18 05:04] VITALS: BP 148/64; PULSE 90; RESP 18; TEMP 37.1; O2SAT 96
[2020-01-18 05:47] LABS: Basophils Percent Auto 0.3 % (0.2-1.2); Eosinophils Percent Auto 0.2 % (0-4.4); Hematocrit 29.9 % (37.0-47.0); Hemoglobin 10.2 g/dL (12.0-15.0); Immature Granulocyte Absolute 0.05 K/mm3 (0.00-0.031); Immature Granulocyte Percent A 0.4 % (0-0.5); Lymphocytes Absolute Auto 1.11 K/mm3 (0.9-3.2); Lymphocytes Percent Auto 9.3 % (18.3-44.2); Mean Corpuscular HGB Conc 34.1 g/dl (32-36); Mean Corpuscular Hemoglobin 31.6 pg (26-34); Mean Corpuscular Volume 92.6 fl (80-100); Mean Platelet Volume 10.8 fl (7.4-10.4); Monocytes Absolute Auto 1.1 K/mm3 (0.1-0.6); Monocytes Percent Auto 9.5 % (2.6-8.5); Neutrophils Absolute Auto 9.6 K/mm3 (1.3-6.7); Neutrophils Percent Auto 80.3 % (45.5-73.1); Platelet Count Result 224 k/mm3 (150-375); Red Blood Count 3.23 M/mm3 (4.2-5.4); Red Cell Distribution Width 12.6 % (11.5-14.5)
[2020-01-18 05:59] LABS: Anion Gap 6 mmol/L (8-16); Blood Urea Nitrogen 22 mg/dL (7-17); Carbon Dioxide 31 mmol/L (22-30); Chloride 101 mmol/L (98-107); Estimated CRCL calculation 82 ml/min; Estimated Glomerular Filt Rate > 60; Glucose 111 mg/dL (65-105); Potassium 3.5 mmol/L (3.4-5.0); Sodium 138 mmol/L (137-145)
[2020-01-18] MEDS: ceFAZolin 2 GM/D5W 50 ML 2 GM/50 ML BAG IVPB (06:31)
[2020-01-18] MEDS: hydroCHLOROthiazide 25 MG TABLET PO (08:03)
[2020-01-18] MEDS: CELECOXIB 200 MG CAPSULE PO (08:03)
[2020-01-18] MEDS: amLODIPine BESYLATE 5 MG TABLET PO (08:03)
[2020-01-18] MEDS: lisinopriL 20 MG TABLET PO (08:04)
[2020-01-18] MEDS: DOCUSATE SODIUM 100 MG CAPSULE PO (08:04)
--- NOTE | 2020-01-18 09:10 | PCOTNOTE ---
On 01/18/20, the student, Courtney Willams, provided care and completed [facility] documentation on this patient. I have reviewed the student's documentation and agree with the findings.
[2020-01-18 09:35] VITALS: BP 123/66; PULSE 87; RESP 20; TEMP 37.3; O2SAT 96
--- NOTE | 2020-01-18 11:01 | WPDANESPN ---
Anes - Prog Note Post-Op Date/Time: 01/18/20 11:01 Cardiovascular status: normal Respiratory status: normal Airway patency: baseline Mental status: baseline Post-Op hydration status: normal Vital Signs: Last Vital Signs Temp 37.3 C 01/18/20 09:35 Pulse 87 01/18/20 09:35 Resp 20 01/18/20 09:35 BP 123/66 01/18/20 09:35 Pulse Ox 96 01/18/20 09:35 Pain Score (VAS): 0 I/O: Intake & Output 01/17/20 01/18/20 01/18/20 23:59 07:59 15:59 Intake Total 290 390 240 Output Total 800 Balance 290 -410 240 Laboratory Tests 01/18/20 05:08 01/18/20 05:08 01/18/20 01/18/20 05:08 05:08 WBC 12.0 H RBC 3.23 L Hgb 10.2 L D Hct 29.9 L MCV 92.6 MCH 31.6 MCHC 34.1 RDW 12.6 Plt Count 224 MPV 10.8 H Immature Gran % (Auto) 0.4 Neut % (Auto) 80.3 H Lymph % (Auto) 9.3 L [place] % (Auto) 9.5 H Eos % (Auto) 0.2 Baso % (Auto) 0.3 Lymph # (Auto) 1.11 [place] # (Auto) 1.1 H Eos # (Auto) 0.0 Baso # (Auto) 0.0 Abs Immat Gran (auto) 0.05 H Absolute Neuts (auto) 9.6 H Absolute Nucleated RBC 0.0 Nucleated RBC % 0.0 Sodium 138 Potassium 3.5 Chloride 101 Carbon Dioxide 31 H Anion Gap 6 L BUN 22 H Creatinine 0.80 Estim Creat Clear Calc 82 Estimated GFR > 60 Glucose 111 H Calcium 9.0 Post-procedural complaints: none Patient Feedback: Patient satisfied with anesthetic care.
[2020-01-18 14:27] VITALS: BP 148/58; PULSE 86; RESP 18; TEMP 37.1; O2SAT 98
--- NOTE | 2020-01-18 14:52 | PM.PNORT ---
Progress Note: A&P Additional Plan Patient is doing well postop day 1 status post right total hip arthroplasty. She will be discharged home today follow-up in [address] Godwin, see discharge orders. The patient voiced understanding and agrees with above plan. Subjective Subjective Date/Time Seen: 01/18/20 14:52 Patient is doing very well postop day 1 status post right total hip arthroplasty has no complaints tolerated physical therapy well and pain is well controlled. She is now asking to be discharged home. Review of Systems Constitutional: Constitutional: Reports as per HPI Exam Narrative: Exam Narrative: Patient is well-developed well-nourished female no acute distress. She is doing well postop day 1. Vital signs are stable she is afebrile and neurovascularly she is intact wound is clean and dry calves are benign. Pain is well controlled. The patient ambulated well in physical therapy and tolerated PT well. Objective Data Vital Signs Vital Signs: Vital Signs - 24 hr 01/17/20 17:04 01/17/20 21:04 01/18/20 01:04 Temperature 36.9 C 36.9 C 37.1 C Pulse Rate 90 103 H 85 Respiratory Rate 17 18 20 Blood Pressure 146/82 H 162/77 H 147/74 H Pulse Oximetry 97 94 98 01/18/20 05:04 01/18/20 09:35 01/18/20 14:27 Temperature 37.1 C 37.3 C 37.1 C Pulse Rate 90 87 86 Respiratory Rate 18 20 18 Blood Pressure 148/64 H 123/66 148/58 H Pulse Oximetry 96 96 98 Intake/Output Intake/Output: Intake & Output 01/15/20 01/16/20 01/17/20 01/18/20 23:59 23:59 23:59 23:59 Intake Total 1140 870 Output Total 800 Balance 1140 70 Meds/Results Medications: Active Medications Generic Name Dose Route Start Last Admin Trade Name Freq PRN Reason Stop Dose Admin Acetaminophen 1,000 mg 01/17/20 07:19 Tylenol Tablet PO Q6H PRN Mild Pain (1-3) Hydrocodone Bitart/Acetaminophen 1 tab 01/17/20 07:19 [place] 5-325 Mg PO Q4H PRN Moderate Pain (4-6) Hydrocodone Bitart/Acetaminophen 1 tab 01/17/20 07:19 01/18/20 14:34 [place] 7.5-325 Mg PO 1 tab Q6H PRN Administration Pain Rated 7-10 Amlodipine Besylate 5 mg 01/17/20 12:00 01/18/20 08:03 Norvasc PO 5 mg QAM AARON Administration Atorvastatin Calcium 20 mg 01/17/20 21:00 01/17/20 20:46 Lipitor PO 20 mg HS AARON Administration Celecoxib 200 mg 01/17/20 08:00 01/18/20 08:03 Celebrex PO 200 mg BIDWM AARON Administration Cyclobenzaprine HCl 10 mg 01/17/20 23:47 01/18/20 00:11 Flexeril PO 10 mg Q8H PRN Administration Muscle Spasm Docusate Sodium 100 mg 01/17/20 12:00 01/18/20 08:04 Colace Capsule PO 100 mg BID AARON Administration Hydrochlorothiazide 25 mg 01/17/20 12:00 01/18/20 08:03 Hydrochlorothiazide PO 25 mg QAM AARON Administration Lisinopril 20 mg 01/17/20 12:00 01/18/20 08:04 Prinivil PO 20 mg QAM AARON Administration Morphine Sulfate 4 mg 01/17/20 07:19 Morphine Sulfate Inj (*Crx) IV PUSH Q2H PRN Breakthrough pain rated 7-10 Naloxone HCl 0.1 mg 01/17/20 07:19 Narcan IV PUSH Q2M PRN Opiate Reversal Rivaroxaban 10 mg 01/17/20 21:00 01/17/20 20:46 Xarelto PO 01/28/20 17:01 10 mg DAILY@17 AARON Administration Radiology Results: ITS Impressions Intraoperative X-Ray 01/17/20 09:32 IMPRESSION: Postoperative change from right total hip arthroplasty Status post left total hip arthroplasty Severe degenerative disc disease at L5-S1 Osteopenia Labs Labs: Laboratory Results - last 24 hr 01/18/20 01/18/20 05:08 05:08 WBC 12.0 H RBC 3.23 L Hgb 10.2 L D Hct 29.9 L MCV 92.6 MCH 31.6 MCHC 34.1 RDW 12.6 Plt Count 224 MPV 10.8 H Immature Gran % (Auto) 0.4 Neut % (Auto) 80.3 H Lymph % (Auto) 9.3 L [place] % (Auto) 9.5 H Eos % (Auto) 0.2 Baso % (Auto) 0.3 Lymph # (Auto) 1.11 [place] # (Auto) 1.1 H Eos # (Auto) 0.0 Baso # (Auto) 0.0
--- NOTE | 2020-01-18 15:00 | PM.DS ---
DS: Admitting Diagnosis Admitting Diagnosis Admitting Diagnosis: OA right hip Discharge diagnosis severe primary osteoarthritis right hip now status post right total hip arthroplasty. DS: Summary Time Spent with Patient Time attestation: Total time spent providing and/or coordinating discharge services: Exam Narrative: Exam Narrative: Patient is well-developed well-nourished female no acute distress postop day 1. Wound is clean and dry calves are benign neurovascular she is intact pain is well controlled. Patient is alert oriented x3. Strength is 5 5. Doing well in physical therapy ambulating independently with a walker touchdown weight-bearing right lower extremity. DS: Data Data Completed and Pending Labs on day of discharge: Labs from last 24 hours 01/18/20 01/18/20 05:08 05:08 WBC 12.0 H RBC 3.23 L Hgb 10.2 L D Hct 29.9 L MCV 92.6 MCH 31.6 MCHC 34.1 RDW 12.6 Plt Count 224 MPV 10.8 H Immature Gran % (Auto) 0.4 Neut % (Auto) 80.3 H Lymph % (Auto) 9.3 L [place] % (Auto) 9.5 H Eos % (Auto) 0.2 Baso % (Auto) 0.3 Lymph # (Auto) 1.11 [place] # (Auto) 1.1 H Eos # (Auto) 0.0 Baso # (Auto) 0.0 Abs Immat Gran (auto) 0.05 H Absolute Neuts (auto) 9.6 H Absolute Nucleated RBC 0.0 Nucleated RBC % 0.0 Sodium 138 Potassium 3.5 Chloride 101 Carbon Dioxide 31 H Anion Gap 6 L BUN 22 H Creatinine 0.80 Estim Creat Clear Calc 82 Estimated GFR > 60 Glucose 111 H Calcium 9.0 Discharge Plan Discharge Patient Disposition: Home, Self-Care Discharge Instructions: discharged to home general diet activity as tolerated to touchdown weight-bearing right lower extremity with a walker at all times. Patient is a change dressing daily watch for evidence of drainage or infection call the office immediately for any problems difficulties or questions regarding her postoperative course. She will follow hip precautions. The patient is to be discharged with prescriptions for [place] and Xarelto. She will resume her home medication. She will call [phone] for any problems difficulties or questions. Follow-up better prescheduled appointment with Dr. Godwin in 2 weeks. Patient Instructions: Rivaroxaban (By mouth), Precautions after Total Joint Replacement Surgery (DC), Total Hip Replacement (DC) Stand Alone Forms: Avoid NSAIDs, General Discharge Instructions Follow-up/Referrals: Carloz Godwin MD [Physician] - Discharge Medications: New hydrocodone-acetaminophen 7.5-325 mg Tablet 1 tab PO Q6H PRN (Reason: Pain Rated 7-10) Qty: 50 RF: 0 Xarelto 10 mg Tablet 10 mg PO DAILY@17 Qty: 20 RF: 0 Continued amlodipine-benazepril 5-20 mg capsule 1 cap PO QAM RF: 0 omega-3 fatty acids 1,250 mg capsule 1,250 mg PO DAILY RF: 0 Centrum Silver Women 8 mg iron-400 mcg-300 mcg tablet 1 tablet PO DAILY RF: 0 atorvastatin 20 mg tablet 20 mg PO HS RF: 0 calcium carbonate [Tums] 200 mg calcium (500 mg) Tablet,Chewable 200 mg PO QAM RF: 0 omeprazole 40 mg capsule,delayed release(DR/EC) 40 mg PO QAM RF: 0 hydrochlorothiazide 25 mg tablet 25 mg PO QAM RF: 0 trazodone 50 mg tablet 100 mg PO .QHS RF: 0 Discontinued meloxicam 15 mg tablet 15 mg PO QAM RF: 0 tramadol 50 mg tablet 50 mg PO BID RF: 0
== END 2020-01-18 15:43 | disposition home or self-care (01) ==
LOC: ANHSURGERY 05:53 → ANH2MED 11:03
PROVIDERS: PCP Family Medicine; Visit Provider Orthopaedic Surgery
PROC: (CPT 27130; principal; 2020-01-17 07:30)
DX: M16.11 Unilateral primary osteoarthritis, right hip (principal); I10 Essential (primary) hypertension; E78.2 Mixed hyperlipidemia; G89.29 Other chronic pain; Z79.891 Long term (current) use of opiate analgesic; E66.01 Morbid (severe) obesity due to excess calories; Z68.41 Body mass index [BMI] 40.0-44.9, adult
CPT/HCPCS: 27130; 36415; 80048; 85025; 97110; 97116; 97161; 97165; A9270; C1776; J0171; J0330; J0690; J1100; J1885; J2250; J2270; J2370; J2405; J2704; J2710; J2795; J3010; J3370; J7120

== ENCOUNTER → 2020-11-29 03:53 | Outpatient (CLI) | payer MEDICARE, SELFPAY ==
[2020-11-30 01:34] LABS: SARS-CoV-2 RNA PCR Negative
== END ==
PROVIDERS: PCP Family Medicine; Visit Provider Family Medicine
DX: Z20.822 Contact with and (suspected) exposure to COVID-19 (principal); R50.9 Fever, unspecified
CPT/HCPCS: C9803; U0003; U0005

== ENCOUNTER 2020-12-03 14:23 | Outpatient (CLI) | payer MEDICARE, SELFPAY ==
--- NOTE | ~2020-12-03 | XR_ITS ---
XR chest 2V 12/03/2020 14:53 Indication: Cough and shortness of breath Procedure: 2 view chest Comparison: 05/25/2007 Findings: Right middle lobe infiltrates may represent atelectasis or developing pneumonia. No signifi cant effusion. Heart size normal. No edema or pneumothorax. No acute osseous abnormality. Impression: 1: Right middle lobe infiltrates may represent atelectasis or developing pneumonia. Reviewed, dictated and finalized at location A. Impression: 1: Right middle lobe infiltrates may represent atelectasis or developing pneumo stephany.
== END 2020-12-03 14:24 | disposition home or self-care (01) ==
PROVIDERS: PCP Family Medicine; Visit Provider Nurse Practitioner Family
DX: R05 Cough (principal); R06.02 Shortness of breath; R91.8 Other nonspecific abnormal finding of lung field
CPT/HCPCS: 71046

== ENCOUNTER 2020-12-11 13:47 | Inpatient (IN) | payer MEDICARE, SELFPAY ==
[2020-12-11] VITALS (39 sets, daily range): BP systolic 113–165; BP diastolic 55–97; PULSE 85–105; RESP 14–25; TEMP 36.8–37.6; O2SAT 87–99
--- NOTE | ~2020-12-11 | US_ITS ---
EXAMINATION: US abdomen limited DATE: 12/13/2020 08:12 INDICATION: Abnormal liver function tests. TECHNIQUE: Multiple grayscale and Doppler ultrasound images of the abdomen were obtained. COMPARISON: CT abdomen and pelvis 08/07/2019 FINDINGS: The visualized portions of the head and body of the pancreas are normal. The liver is danitza l without focal lesion. No liver surface nodularity. There is normal flow in main portal vein. The ga llbladder is normal in size. No gallstones or gallbladder wall thickening. There was no sonographic M urphy sign. The common duct is normal and measures 2 mm. IMPRESSION: 1. Normal right upper quadrant ultrasound. Reviewed, dictated and finalized at location A.
--- NOTE | ~2020-12-11 | US_ITS ---
EXAMINATION: US venous doppler LE EXAM DATE: 12/12/2020 15:31 INDICATION: Elevated d-dimer, recent covid. TECHNIQUE: Multiple grayscale, color flow and Doppler images of the lower extremity deep venous syste ms bilaterally were obtained and reviewed. There is no prior study for comparison. FINDINGS: Right side: The right common femoral, femoral and profunda veins demonstrate normal color flow, respi ratory variation, augmentation and compressibility. Compressibility, color flow confirmed within the right popliteal, posterior tibial, peroneal, and greater saphenous veins. Left side: The left common femoral, femoral and profunda veins demonstrate normal color flow, respira tory variation, augmentation and compressibility. Compressibility, color flow confirmed within the l eft popliteal, posterior tibial, peroneal, and greater saphenous veins. IMPRESSION: No lower extremity deep venous thrombosis bilaterally. Reviewed, dictated and finalized at location A.
--- NOTE | ~2020-12-11 | CT_ITS ---
EXAMINATION: CTA chest PE protocol DATE: 12/11/2020 19:21 INDICATION: Shortness of breath, tachycardia, hypoxia, worsening pneumonia TECHNIQUE: Computed tomography angiography (CTA) of the chest was performed with 100 mL Omnipaque-350 intravenous contrast timed to evaluate the pulmonary arteries. Coronal maximum intensity projection 3D-reconstructions were created by the technologist. Automated exposure control and iterative reconst ruction technique were employed. Exam dose: 583.89 mGy-cm total exam DLP. COMPARISON: 12/11/2020 PA and lateral chest FINDINGS: There is diagnostic contrast enhancement of the pulmonary stenosis of pulmonary embolism. No thoracic aortic aneurysm or dissection. Mild bilateral hilar and mediastinal lymph node prominence is likely reactive. There are diffuse extensive groundglass infiltrates scattered throughout both lungs involving all lob es, suspicious for Covid 19 pneumonia. Normal morphology of the adrenal glands. Severe degenerative disease of the lower cervical spine. Degenerative spurring of the thoracic and marcela mbar spine. No suspicious osteolytic or osteoblastic lesions are noted. IMPRESSION: Extensive groundglass infiltrates scattered throughout all lobes of both lungs, suggesti ng Covid 19 pneumonia No evidence of pulmonary embolism Reviewed, dictated and finalized at Location A. Reviewed, dictated and finalized at location A. IMPRESSION: Extensive groundglass infiltrates scattered throughout all lobes o f both lungs, suggesting Covid 19 pneumonia No evidence of pulmonary embolism
--- NOTE | ~2020-12-11 | XR_ITS ---
EXAMINATION: XR chest 2V EXAM DATE: 12/13/2020 14:37 INDICATION: COVID infection improvement. History hypertension. TECHNIQUE: Frontal and lateral projections of the chest obtained and reviewed. Comparison is made to prior examination from 12/11/2020. FINDINGS: The lungs are clear. There are no pleural effusions. The cardiomediastinal silhouette is within normal limits. There is no pneumothorax suspected. The bones and soft tissues are unremarkab le. IMPRESSION: No acute cardiopulmonary findings. Reviewed, dictated and finalized at location A.
--- NOTE | ~2020-12-11 | XR_ITS ---
EXAMINATION: XR chest 2V DATE: 12/11/2020 14:57 INDICATION: Shortness of breath. TECHNIQUE: Frontal and lateral views of the chest were obtained. COMPARISON: Chest 2 views 12/03/2020, CT abdomen and pelvis 08/07/2019 FINDINGS: There are mild airspace opacities in the lower lung zones. No pleural effusion or pneumotho rax. The heart size is normal. IMPRESSION: 1. Mild airspace opacities in the lower lung zones, consistent with atelectasis versus pneumonia. Reviewed, dictated and finalized at location A.
--- NOTE | 2020-12-11 14:39 | ECG_ITS ---
Measurements Intervals [place] Rate: 105 P: 49 AR: 148 QRS: -1 QRSD: 90 T: 47 QT: 312 QTc: 412 Interpretive Statements SINUS TACHYCARDIA POSSIBLE LEFT ATRIAL ENLARGEMENT ST ABNORMALITY IN HIGH LATERAL LEADS- CONSIDER ISCHEMIA ABNORMAL ECG Electronically Signed On 12-11-2020 14:56:10 CDT by Dawood Rushing D.O.
[2020-12-11] MEDS: SODIUM CHLORIDE 0.9% IV 1,000 ML 999 ML IV CONT (16:25)
--- NOTE | 2020-12-11 16:41 | ED.SOB ---
HPI - SOB/Dyspnea General Chief Complaint: Shortness of Breath/Dyspnea Stated Complaint: Multiple complaints Time Seen by Provider: 12/11/20 16:03 History of Present Illness HPI Narrative: Patient presents with shortness of breath for 7 days. Patient reports she was exposed to someone who tested positive for Covid shortly after developed shortness of breath and cough. Her primary care doctor tested for Covid and was negative she was placed on a short course of antibiotics. She completed her antibiotics and her cough improved but she continues have shortness of breath she was concerned so came to the ER for evaluation. She does report subjective fevers at home. She denies chest pain, prior history of blood clot. Related Data Home Medications Medication Instructions Recorded Confirmed multivit with 1 tablet PO DAILY 09/05/19 10/08/20 glqvnfqv-hmuy-NM-lutein 8 mg iron-400 mcg-300 mcg tablet omega-3 fatty acids 1,250 mg 1,250 mg PO DAILY 09/05/19 10/08/20 capsule calcium carbonate [Tums] 200 mg PO QAM 10/30/19 10/08/20 folic acid 1 mg tablet 1 mg PO DAILY 10/08/20 10/08/20 leflunomide 10 mg tablet 10 mg PO DAILY 10/08/20 10/08/20 methotrexate sodium 2.5 mg tablet 25 mg PO WEEKLY tablet 10/08/20 10/08/20 Allergies Allergy/AdvReac Type Severity Reaction Status Date / Time No Known Allergies Allergy Verified 12/11/20 16:17 Review of Systems Review of Systems: CONSTITUTIONAL: Denies fever, chills, or sweats. EYES: Denies visual changes, redness, or discharge. ENT: Denies rhinorrhea, congestion, sore throat, or otalgia. CARDIOVASCULAR: Denies chest pain, palpitations, or edema. RESPIRATORY: Reports dyspnea. GASTROINTESTINAL: Denies abdominal pain, nausea, vomiting, or diarrhea. GENITOURINARY: Denies dysuria or hematuria. SKIN: Denies rash or itching. MUSCULOSKELETAL: Denies back pain, joint pain, or myalgia. NEUROLOGIC: Denies headache, numbness, dizziness, or weakness. PSYCHIATRIC: Denies anxiety or depression. All systems reviewed & are unremarkable except as noted in HPI and below PMFSH Past Medical History Medical History Arthritis Benign essential HTN Chronic pain GERD (gastroesophageal reflux disease) Mixed hyperlipidemia Normal colonoscopy OAB (overactive bladder) Presence of bilateral total knee joint prostheses Seronegative rheumatoid arthritis Surgical History Surgical History History of arthroplasty of left ankle History of arthroplasty of left hip History of bilateral knee arthroplasty with the pain S/p bilateral carpal tunnel release Family History Family History Mother Hypertension, Onset Age: 61 Acute myocardial infarction, Onset Age: 61 Family history of arthritis, Onset Age: 61 Sibling Patient's sister is in good health she has osteoarthritis Patient's brother is in good health Father Family history of malignant neoplasm, Onset Age: 49 Social History Social History Social History: the patient lives with her who is a durable power of contract attorney for healthcare. she desires to be a full code. Patient stated that she worked in [employer]. Lifelong nonsmoker. No alcohol marijuana or illicit drugs. The patient does not have any children but has 2 Dogs and 2 cats. Smoking status: Former smoker Second hand tobacco smoke exposure: No Additional smoking assessment comments: DENIES ANY FORM OF TOBACCO USE Alcohol intake: current Alcohol use details: FEW DRINKS/YEAR Substance use: never Substance use type: does not use Gender identity (if verbalized by the patient): Female Spiritual care concerns: No Exam Narrative: GENERAL: Well-appearing, well-nourished, and in no acute distress. HEAD: Normoceph
[2020-12-11 16:44] LABS: Hematocrit 38.4 % (37.0-47.0); Hemoglobin 12.8 g/dL (12.0-15.0); Mean Corpuscular HGB Conc 33.3 g/dl (32-36); Mean Corpuscular Hemoglobin 32.4 pg (26-34); Mean Corpuscular Volume 97.2 fl (80-100); Mean Platelet Volume 10.5 fl (7.4-10.4); Platelet Count Result 310 k/mm3 (150-375); Red Blood Count 3.95 M/mm3 (4.2-5.4); Red Cell Distribution Width 14.3 % (11.5-14.5); White Blood Count 11.4 K/mm3 (4.5-10.0)
[2020-12-11 17:08] LABS: Troponin I < 0.012 ng/mL (0.000-0.034)
[2020-12-11 17:45] LABS: Band Neutrophils Percent 7 % (0-6); Eosinophils Absolute Manual 0.34 K/mm3 (0.02-0.5); Eosinophils Percent Manual 3 % (0-4); Lymphocytes Absolute Manual 2.85 K/mm3 (1.1-4.5); Monocytes Absolute Manual 1.14 K/mm3 (0.1-0.90); Monocytes Percent Manual 10 % (3-9); Neutrophils Absolute Manual 7.06 K/mm3 (1.7-7.2); Neutrophils Percent Manual 55 % (46-73); Platelet Estimate Adequate (Adequate); Total Cells Counted 100
[2020-12-11 17:49] LABS: Alanine Aminotransferase 42 U/L (4-35); Albumin Level 3.8 g/dL (3.5-5.1); Alkaline Phosphatase 87 U/L (38-126); Anion Gap 6 mmol/L (8-16); Aspartate Amino Transferase 53 U/L (14-36); Bilirubin,Total 0.5 mg/dL (0.2-1.3); Blood Urea Nitrogen 22 mg/dL (7-17); Calcium 10.5 mg/dL (8.4-10.2); Carbon Dioxide 25 mmol/L (22-30); Chloride 102 mmol/L (98-107); Estimated CRCL calculation 64 ml/min; Estimated Glomerular Filt Rate > 60; Glucose 110 mg/dL (65-110); Potassium 3.6 mmol/L (3.4-5.0); Sodium 133 mmol/L (137-145)
[2020-12-11 17:58] LABS: NT Pro B Type Natriuretic Pept 89 pg/mL (5-100)
[2020-12-11] MEDS: DEXAMETHASONE SOD PHOS INJ 4 MG/ML VIAL 10 MG IV PUSH (20:59)
[2020-12-11 22:06] LABS: Add Urine Microscopic? YES; Appearance Urine Clear (Clear); Bilirubin Urine Negative (Negative); Blood Urine 1+ (Negative); Color Urine Yellow (Yellow); Glucose Urine UA Negative (Negative); Ketones Urine Negative (Negative); Leukocyte Esterase Ur Negative LEU/UL (Negative); Nitrate Urine Negative (Negative); Protein Urine Negative (Negative); Urobilinogen Urine 0.2 mg/dL (<2.0); pH Urine 6.5 (5.0-9.0)
[2020-12-11 22:44] LABS: Bacteria Urine Trace /hpf
[2020-12-11 22:45] LABS: WBC Urine 0-3 /hpf
[2020-12-11 22:46] LABS: Calcium Oxalate Crystals Urine Present /hpf; Squamous Epithelial Cell Urine Occasional /hpf (Few)
[2020-12-11] MEDS: LACTATED RINGERS 1,000 ML 125 ML IV CONT (23:05)
--- NOTE | 2020-12-11 23:08 | PM.IMHP ---
H&P: HPI History of Present Illness Date/Time: 12/11/20 23:08 Chief Complaint: Worsening shortness of breath Narrative: 70-year-old female past medical history of hypertension, hyperlipidemia, and rheumatoid arthritis on treatment who presented to the ER with complaints of worsening shortness of breath. She evidently was exposed to a on November 19 who was later tested positive on November 21 for COVID. The patient reports that a few days later she began having severe fatigue. She had a COVID PCR performed 11/29/2020 the returned as negative. After she developed fatigue she also developed a nonproductive cough, subjective fevers and eventual shortness of breath. She had not measured her temperature at home because she did not have a thermometer. On the she was prescribed prednisone and an albuterol inhaler without improvement in her symptoms. She continued to have cough, fever, lack of appetite and fatigue. She went to her primary care physician had a chest x-ray which demonstrated pneumonia and received prescription for azithromycin and Advair on 12/03/2020. She completed antibiotic therapy with improvement in her cough but continued worsening shortness of breath. She has not had any loss of sense of taste or smell. She is fully vaccinated against COVID 19 she received her vaccine in March 2019 and April 2019. She did report a couple of days of looser stools but no tila diarrhea. She has chronic urge urinary incontinence is unchanged from baseline. She denies any dysuria. She denies any leg pain or swelling. In triage the patient was noted to have oxygen saturations of 86% and was placed on 3 L nasal cannula with improving saturations up to 94%. Her oxygen has subsequently been weaned back down to 2 L nasal cannula. She is on chronic immunosuppressive therapy with leflunomide and methotrexate due to rheumatoid arthritis. Review of Systems Review of Systems: 12 systems were reviewed with pertinent positives and negatives per HPI. Except as documented in the HPI, all other systems were reviewed and are negative. [facility] Past Medical History Medical History (Updated 12/12/20 @ 05:25 by Sylvia Hoover DO) Benign essential HTN Chronic pain GERD (gastroesophageal reflux disease) Mixed hyperlipidemia Normal colonoscopy OAB (overactive bladder) Seronegative rheumatoid arthritis Surgical History Surgical History (Updated 12/11/20 @ 23:17 by Sylvia Hoover DO) History of arthroplasty of left ankle History of arthroplasty of left hip History of bilateral knee arthroplasty with the pain History of right hip replacement (12/2019) S/p bilateral carpal tunnel release Family History Family History Mother Hypertension, Onset Age: 61 Acute myocardial infarction, Onset Age: 61 Family history of arthritis, Onset Age: 61 Sibling Patient's sister is in good health she has osteoarthritis Patient's brother is in good health Father Family history of malignant neoplasm, Onset Age: 49 Social History Social History (Updated 12/12/20 @ 05:32 by Sylvia Hoover DO) Social History: She lives with her of 18 years. He is a durable power of consumer attorney for healthcare. she desires to be a full code. Patient stated that she worked in [employer]. She does not have any children. She does have 2 lopez retrievers and 2 cats. Primary care physician: Dr. Jose Trujillo Smoking status: Never smoker Second hand tobacco smoke exposure: No Alcohol intake: current Alcohol use details: FEW DRINKS/YEAR Substance use: never Substance use type: does not use Additional living arrangements comments: They live part of the year in [facility] in part of the year in [place]. Gender identity (if verbalized by the patient): Female Spiritual care concerns: No Meds Home Medications and Allergies Home Medication
--- NOTE | 2020-12-11 23:54 | ADMGEN ---
This patient, Carolyn Davidson, was admitted to [facility] Surg Room 328-01 at 2330. Patient/family oriented to hospital policies and general routines including ID bracelet, bed and alarms, visiting hours, pain management, procedures, bathroom and other care routines, personal items, smoking policy, room service/diet, and visiting hours. Information on how to activate the Rapid Response Team has been discussed. Patient/Family are encouraged to report perceived risks to care and to ask questions if they do not understand what they are told or what they should do.
[2020-12-12] VITALS (11 sets, daily range): BP systolic 125–159; BP diastolic 61–73; PULSE 76–104; RESP 16–24; TEMP 36.3–36.6; O2SAT 3–97; BMI 35.9
[2020-12-12] MEDS: ALBUTEROL SULFATE (*SP) AEROSOL 1 PUFF 4 PUFF INHALATION ×3 (03:01→22:45)
[2020-12-12 06:26] LABS: Hematocrit 35.4 % (37.0-47.0); Hemoglobin 11.9 g/dL (12.0-15.0); Mean Corpuscular HGB Conc 33.6 g/dl (32-36); Mean Corpuscular Hemoglobin 32.5 pg (26-34); Mean Corpuscular Volume 96.7 fl (80-100); Mean Platelet Volume 10.5 fl (7.4-10.4); Platelet Count Result 271 k/mm3 (150-375); Red Blood Count 3.66 M/mm3 (4.2-5.4); Red Cell Distribution Width 14.3 % (11.5-14.5); White Blood Count 6.5 K/mm3 (4.5-10.0)
[2020-12-12 06:47] LABS: Alanine Aminotransferase 36 U/L (4-35); Albumin Level 3.4 g/dL (3.5-5.1); Alkaline Phosphatase 77 U/L (38-126); Anion Gap 6 mmol/L (8-16); Aspartate Amino Transferase 44 U/L (14-36); Bilirubin,Total 0.5 mg/dL (0.2-1.3); Blood Urea Nitrogen 17 mg/dL (7-17); CRP 4.7 mg/dL (<1.0); Calcium 9.9 mg/dL (8.4-10.2); Carbon Dioxide 25 mmol/L (22-30); Chloride 108 mmol/L (98-107); Estimated CRCL calculation 82 ml/min; Estimated Glomerular Filt Rate > 60; Glucose 149 mg/dL (65-110); Lactate Dehydrogenase 744 U/L (313-618); Potassium 3.8 mmol/L (3.4-5.0); Sodium 139 mmol/L (137-145)
[2020-12-12 06:55] LABS: D Dimer 0.98 ug/mL (<0.48)
[2020-12-12] MEDS: lisinopriL 20 MG TABLET PO ×2 (09:48→20:28)
[2020-12-12] MEDS: CALCIUM CARBONATE (TUMS) 500 MG (200 MG ELEMENTAL) PO (09:48)
[2020-12-12] MEDS: PANTOPRAZOLE 40 MG TABLET PO ×2 (09:48→17:27)
[2020-12-12] MEDS: ENOXAPARIN 40 MG/0.4 ML SYRINGE SUB-Q ×2 (09:51→20:27)
[2020-12-12] MEDS: OMEGA 3 POLYUNSAT FATTY ACIDS 1 GM CAP PO (13:03)
[2020-12-12] MEDS: FOLIC ACID 1 MG TABLET PO (13:03)
[2020-12-12] MEDS: THERAPEUTIC MULTIVITAMINS/MINERALS TAB (*BKC) 1 TABLET PO (13:03)
[2020-12-12] MEDS: amLODIPine BESYLATE 5 MG TABLET BY MOUTH (13:03)
[2020-12-12] MEDS: hydroCHLOROthiazide 25 MG TABLET PO (13:03)
--- NOTE | 2020-12-12 17:09 | PM.IMPN ---
Progress Note: A&P Assessment and Plan (1) Pneumonia: Qualifiers: Laterality: unspecified laterality Lung location: unspecified part of lung Pneumonia type: due to unspecified organism Qualified Code(s): J18.9 - Pneumonia, unspecified organism Code(s): J18.9 - Pneumonia, unspecified organism Status: Acute Assessment and Plan: Suspect secondary to COVID -patient was exposed on November 19 and started having symptoms on November 24. She did test negative on November 29 -since then she has been very fatigued and short of breath. She has had a low appetite although she can taste and smell -she did try azithromycin outpatient and this did not make her any better -CT suggests bilateral pneumonia consistent with COVID -she had a COVID vaccine in April but is on some medications that can make this less efficacious -await PCR as this is likely due to COVID. Continue steroids -if she is negative for COVID, consider influenza testing, antibiotics, pulmonology consult, and additional workup -continue oxygen as needed (2) Hypoxia: Code(s): R09.02 - Hypoxemia Status: Acute Assessment and Plan: Secondary to above (3) Suspected COVID-19 virus infection: Code(s): Z20.822 - Contact with and (suspected) exposure to COVID-19 Status: Acute Assessment and Plan: As explained above (4) Seronegative rheumatoid arthritis: Code(s): M06.00 - Rheumatoid arthritis without rheumatoid factor, unspecified site Status: Acute Assessment and Plan: Hold leflunomide and methotrexate in the setting of infection Time Spent With Patient Time with patient: 25 - 35 minutes Subjective Date/time seen: 12/12/20 17:09 Interval history: Pt is a 70-year-old female here for pneumonia and fatigue. Patient was seen today and states she feels so much better on the oxygen today. She has not slept nearly as much as she usually does and feels like she has more energy. In the last 2 weeks she has been sleeping most of the day which is unusual for her. Today she says she continues to have a cough but is mild. She is a mouth breather and does better with the facial mask. She denies chest pain, nausea, vomiting, and her appetite is better. Review of Systems Review of Systems: All systems reviewed & are unremarkable except as noted in HPI and below Exam Narrative: General: Well developed well nourished patient in NAD HEENT: normocephalic Neck: supple Neuro: Alert and oriented x4 CV:RRR Resp: Decreased breath sounds bilaterally, CTA Abd: Soft, non distended. No pain to palpation. Positive bowel sounds Extremities: No swelling, erythema, or pain to palpation. Objective Data Vital Signs Vital Signs: Vital Signs - 24 hr 12/11/20 17:15 12/11/20 17:30 12/11/20 17:31 Temperature Pulse Rate 87 87 89 Respiratory Rate 20 19 19 Blood Pressure 142/81 H Pulse Oximetry 97 97 98 12/11/20 17:32 12/11/20 17:59 12/11/20 18:00 Temperature Pulse Rate 88 89 89 Respiratory Rate 20 Blood Pressure Pulse Oximetry 97 97 95 12/11/20 18:01 12/11/20 18:15 12/11/20 18:30 Temperature Pulse Rate 92 89 89 Respiratory Rate 19 21 H 21 H Blood Pressure 147/80 H Pulse Oximetry 96 98 97 12/11/20 18:31 12/11/20 18:45 12/11/20 19:19 Temperature Pulse Rate 92 87 96 Respiratory Rate 19 22 H 18 Blood Pressure 143/78 H Pulse Oximetry 97 97 95 12/11/20 19:20 12/11/20 19:30 12/11/20 19:32 Temperature Pulse Rate 94 87 87 Respiratory Rate 22 H 21 H 22 H Blood Pressure 165/75 H 113/55 L Pulse Oximetry 98 98 97 12/11/20 19:45 12/11/20 20:00 12/11/20 20:01 Temperature Pulse Rate 86 86 86 Respiratory Rate 20 21 H 23 H Blood Pressure 136/79 Pulse Oximetry 99 97 98 12/11/20 20:15 12/11/20 20:36 12/11/20 20:45 Temperature Pulse Rate 85 92 87 Respiratory Rate 20 22 H 23 H Blood Pressure Pulse Oximetry 98 97 98
[2020-12-12 20:01] LABS: SARS-CoV-2 RNA PCR Negative
[2020-12-12] MEDS: traZODone HCL 50 MG TABLET PO (20:28)
[2020-12-12] MEDS: DEXAMETHASONE SOD PHOS INJ 4 MG/ML VIAL 6 MG IV PUSH (20:28)
[2020-12-12] MEDS: ATORVASTATIN 20 MG TABLET PO (20:30)
[2020-12-12 22:54] LABS: Influenza Control Positive
[2020-12-13] VITALS (9 sets, daily range): BP systolic 119–138; BP diastolic 47–75; PULSE 80–114; RESP 16–18; TEMP 36.2–37.2; O2SAT 89–98
--- NOTE | 2020-12-13 02:49 | PC.NURSE ---
220 Dr Jewell Hood called [facility].Orders recieved for antibiotics and influenza A & B swab.
[2020-12-13] MEDS: ALBUTEROL SULFATE (*SP) AEROSOL 1 PUFF 4 PUFF INHALATION ×3 (03:08→15:01)
[2020-12-13 07:18] LABS: Hemoglobin 11.4 g/dL (12.0-15.0); Mean Corpuscular HGB Conc 32.6 g/dl (32-36); Mean Corpuscular Hemoglobin 32.6 pg (26-34); Mean Platelet Volume 10.8 fl (7.4-10.4); Platelet Count Result 278 k/mm3 (150-375); Red Cell Distribution Width 14.8 % (11.5-14.5); White Blood Count 12.5 K/mm3 (4.5-10.0)
[2020-12-13 07:51] LABS: Alanine Aminotransferase 36 U/L (4-35); Albumin Level 3.4 g/dL (3.5-5.1); Alkaline Phosphatase 68 U/L (38-126); Anion Gap 7 mmol/L (8-16); Aspartate Amino Transferase 44 U/L (14-36); Bilirubin,Total 0.4 mg/dL (0.2-1.3); Blood Urea Nitrogen 19 mg/dL (7-17); CRP 2.7 mg/dL (<1.0); Carbon Dioxide 25 mmol/L (22-30); Chloride 109 mmol/L (98-107); Estimated CRCL calculation 73 ml/min; Estimated Glomerular Filt Rate > 60; Glucose 130 mg/dL (65-110); Lactate Dehydrogenase 724 U/L (313-618); Magnesium 1.9 mg/dL (1.6-2.3); Phosphorus 4.3 mg/dL (2.5-4.5); Potassium 3.6 mmol/L (3.4-5.0); Sodium 141 mmol/L (137-145)
[2020-12-13 08:40] LABS: SARS-CoV-2 IgG Reactive (NonReactive)
[2020-12-13] MEDS: PANTOPRAZOLE 40 MG TABLET PO ×2 (09:23→16:59)
[2020-12-13] MEDS: amLODIPine BESYLATE 5 MG TABLET BY MOUTH (09:24)
[2020-12-13] MEDS: OMEGA 3 POLYUNSAT FATTY ACIDS 1 GM CAP PO (09:24)
[2020-12-13] MEDS: THERAPEUTIC MULTIVITAMINS/MINERALS TAB (*BKC) 1 TABLET PO (09:24)
[2020-12-13] MEDS: FOLIC ACID 1 MG TABLET PO (09:25)
[2020-12-13] MEDS: ENOXAPARIN 40 MG/0.4 ML SYRINGE SUB-Q (09:25)
[2020-12-13] MEDS: CALCIUM CARBONATE (TUMS) 500 MG (200 MG ELEMENTAL) PO (09:25)
[2020-12-13] MEDS: hydroCHLOROthiazide 25 MG TABLET PO (09:25)
--- NOTE | 2020-12-13 15:29 | HOMEO2EVAL ---
Evaluation was performed at [facility] Home Oxygen Evaluation RC: Home Oxygen (O2) Evaluation Start: 12/13/20 13:48 Freq: ONCE Status: Active Protocol: RPE Activity Type Activity Date Activity User E-Sign Co-Sign Detail Recorded Client Recorded Date Recorded By Document 12/13/20 15:05 DIA [email or web address] 12/13/20 15:29 DIA Document 12/13/20 15:10 [email or web address] [email or web address] 12/13/20 15:29 DIA Document 12/13/20 15:15 DIA [email or web address] 12/13/20 15:29 DIA 12/13/20 12/13/20 12/13/20 15:05 15:10 15:15 Home O2 Evaluation Test Phase Resting Exercise Resting Oxygen Delivery Room Air Room Air Room Air Pulse Oximetry (90-100 %) 94 89 L 95 Pulse Rate (60-100 beats/min) 114 H 88 Activity Tolerance Excellent Ambulation Distance (feet) 250 Home Oxygen Evaluation Comments Pt took brisk NO HOME O2 walk in [place]. NEEDED. Sats dropped to 89% for approx . 3 seconds, went back up to 90-91% for remaining walk. Treatment Charges O2 Evaluation - Inpatient
--- NOTE | 2020-12-13 15:29 | PCRCNOTE ---
HOME O2 EVAL COMPLETED. NO HOME O2 NEEDED AT THIS TIME.
--- NOTE | 2020-12-13 17:23 | PM.DS ---
DS: Admitting Diagnosis Admitting Diagnosis Fevers, Shortness of breath, lethargy, weakness DS: Discharge Diagnosis Discharge Diagnosis (1) Pneumonia: Qualifiers: Laterality: unspecified laterality Lung location: unspecified part of lung Pneumonia type: due to unspecified organism Qualified Code(s): J18.9 - Pneumonia, unspecified organism Code(s): J18.9 - Pneumonia, unspecified organism Status: Acute Assessment and Plan: Secondary to COVID -patient was exposed on November 19 and started having symptoms on November 24. She did test negative on November 29 -since then she has been very fatigued and short of breath. She has had a low appetite although she can taste and smell -she did try azithromycin outpatient and this did not make her any better -CT suggests bilateral pneumonia consistent with COVID -she had a COVID vaccine in April but the CDC and vaccine pharmaceutical companies have learned that immunization from vaccines may only last 6-8 months. So she may have waning immunity at this time -Continue steroids -her testing showed that she is negative for an active COVID infection, but she does have COVID antibodies based on 2 test. Influenza testing negative, she did receive IV antibiotics for the pneumonia. at this time she does not need a pulmonary consult Ordered home oxygen study and evaluation Ordered PT and OT evaluation Patient has been off oxygen all day, states that she has never felt better and has all of her energy back and denies any shortness of breath at this time. Patient is expecting to go home soon today. (2) Hypoxia: Code(s): R09.02 - Hypoxemia Status: Acute Assessment and Plan: Secondary to above See above plan Completely resolved On room air and tolerating well even with activity, she is not tachypneic, does not have a cough (3) Suspected COVID-19 virus infection: Code(s): Z20.822 - Contact with and (suspected) exposure to COVID-19 Status: Acute Assessment and Plan: She has been experiencing high fevers off and on for the last 2 weeks These fevers are likely related to COVID, but may also be related to other autoimmune disorders, Lupus, or leukemia, etc. I did educate the patient on this possibility. She will need to give her COVID infection another week or 2 to recover from before she proceeds with any further workup See findings and plan above (4) Seronegative rheumatoid arthritis: Code(s): M06.00 - Rheumatoid arthritis without rheumatoid factor, unspecified site Status: Acute Assessment and Plan: held at admission: leflunomide and methotrexate in the setting of infection Patient is denying any and all discomfort or pain from her arthritis at this time Restarting medications at discharge DS: Summary Hospital Course Hospital Course: Patient admitted with elevated fevers and shortness of breath and low fatigue. Patient started on IV fluids, IV antibiotics, inhalers, tested for COVID and influenza and COVID antibodies. Patient stated that she greatly improved once oxygen was applied. She has since been weaned from her oxygen and continues to feel well with adequate SpO2 readings. She has not had fever for a day and a half. Her LDH is improving her LFTs are elevated but also improving her D-dimer is mildly elevated but her CT a shows no PEs. Her ferritin level is improving. Her abdominal ultrasound is normal. Patient wants to go home since she is feeling much better and tolerated her OT session as well as past home oxygen evaluation without need for oxygen. Time Spent with Patient Time attestation: Total time spent providing and/or coordinating discharge services:90 minutes Exam Const: General: comfortable and no acute distress Limitations: no limitations Eyes: General: appearance normal, both eyes and all related structures Sclera: sclerae normal Pupils: Equal, round and reactive pupils present EOM: EOMs int
== END 2020-12-13 18:20 | disposition home or self-care (01) | DRG 177 ==
LOC: ANHED 20:51 → ANH3MEDSUR 22:23
PROVIDERS: Physician Assistant; Admitting Provider Internal Medicine; Emergency Provider Emergency Medicine; PCP Family Medicine; Visit Provider Nurse Practitioner
DX: U07.1 COVID-19 (principal); J12.82 Pneumonia due to coronavirus disease 2019; M06.00 Rheumatoid arthritis without rheumatoid factor, unspecified site; R09.02 Hypoxemia; K21.9 Gastro-esophageal reflux disease without esophagitis; E78.2 Mixed hyperlipidemia; N32.81 Overactive bladder; M19.90 Unspecified osteoarthritis, unspecified site; Z96.653 Presence of artificial knee joint, bilateral; Z96.662 Presence of left artificial ankle joint; Z96.643 Presence of artificial hip joint, bilateral; E66.9 Obesity, unspecified; Z68.35 Body mass index [BMI] 35.0-35.9, adult
CPT/HCPCS: 36415; 71046; 71275; 76705; 80048; 80053; 80076; 81001; 82728; 83615; 83735; 83880; 84100; 84484; 85025; 85027; 85380; 86140; 86413; 86769; 87040; 87804; 93005; 93970; 94618; 94640; 96361; 96374; 97165; 99285; A9270; C9803; G0378; J0456; J0696; J1100; J1650; J7030; J7120; Q9967; U0003; U0005

== ENCOUNTER 2021-01-01 09:49 | Outpatient (CLI) | payer MEDICARE, SELFPAY ==
--- NOTE | ~2021-01-01 | MM_ITS ---
EXAMINATION: MM screening [facility] BI w maciel HISTORY: Screening TECHNIQUE: Craniocaudal and mediolateral oblique 3-D tomosynthesis images were obtained and synthetic 2-D images were generated. CAD analysis was submitted and interpreted. COMPARISON: Comparison to multiple prior studies sequentially, with oldest reviewed study dated 04/2012. BREAST PARENCHYMAL COMPOSITION: There are scattered areas of fibroglandular density. FINDINGS: There is no evidence of suspicious mass, calcification, or architectural distortion to sugg est malignancy in either breast. There has been no suspicious interval change. IMPRESSION: 1. No mammographic evidence of malignancy. 2. Recommend routine screening mammography in one year. BI-RADS Category 1: Negative Reviewed, dictated and finalized at location A.
== END 2021-01-01 09:50 | disposition home or self-care (01) ==
LOC: ANHIMG 09:52
PROVIDERS: PCP Family Medicine; Visit Provider Family Medicine
DX: Z12.31 Encounter for screening mammogram for malignant neoplasm of breast (principal)
CPT/HCPCS: 77063; 77067

== ENCOUNTER 2021-01-15 07:44 | Outpatient (CLI) | payer MEDICARE, SELFPAY ==
[2021-01-15 08:07] LABS: Alanine Aminotransferase 34 U/L (4-35); Albumin Level 4.5 g/dL (3.5-5.1); Alkaline Phosphatase 86 U/L (38-126); Anion Gap 7 mmol/L (8-16); Aspartate Amino Transferase 48 U/L (14-36); Bilirubin,Total 0.5 mg/dL (0.2-1.3); Blood Urea Nitrogen 25 mg/dL (7-17); Calcium 10.2 mg/dL (8.4-10.2); Carbon Dioxide 30 mmol/L (22-30); Chloride 106 mmol/L (98-107); Estimated Glomerular Filt Rate > 60; Glucose 98 mg/dL (65-110); Potassium 3.8 mmol/L (3.4-5.0); Sodium 143 mmol/L (137-145)
== END 2021-01-15 07:45 | disposition home or self-care (01) ==
PROVIDERS: PCP Family Medicine; Visit Provider Nurse Practitioner Family
DX: R74.8 Abnormal levels of other serum enzymes (principal)
CPT/HCPCS: 36415; 80053

== ENCOUNTER 2022-10-08 07:01 | Outpatient (CLI) | payer MEDICARE, SELFPAY ==
--- NOTE | ~2022-10-08 | MM_ITS ---
EXAMINATION: MM screening [facility] w maciel HISTORY: Screening mammogram TECHNIQUE: Craniocaudal and mediolateral oblique 3-D tomosynthesis images were obtained and synthetic 2-D images were generated. CAD analysis was submitted and interpreted. COMPARISON: 01/02/2020, 12/27/2019, 11/17/2018 bilateral screening mammogram examinations BREAST PARENCHYMAL COMPOSITION: There are scattered areas of fibroglandular density. FINDINGS: There is no evidence of suspicious mass, calcification, or architectural distortion to sugg est malignancy in either breast. There has been no suspicious interval change. IMPRESSION: 1. No mammographic evidence of malignancy. 2. Recommend routine screening mammography in one year. BI-RADS Category 1: Negative Reviewed, dictated and finalized at location A.
== END 2022-10-08 07:02 | disposition home or self-care (01) ==
LOC: ANHIMG 07:03
PROVIDERS: PCP Family Medicine; Visit Provider Family Medicine
DX: Z12.31 Encounter for screening mammogram for malignant neoplasm of breast (principal)
CPT/HCPCS: 77063; 77067

== ENCOUNTER → 2022-12-31 09:58 | Outpatient (CLI) | payer MEDICARE, SELFPAY ==
--- NOTE | ~2022-12-31 | DEXA_ITS ---
Bone Density Report Name: SAVI DENIS Age: 72 Sex: Female Ethnicity: White Date of : 1950 Indication: postmenopausal; screening for osteoporosis; height loss; Referring Provider: Jose Trujillo Study: Bone densitometry was performed. Exam Date: December 31, 2022 Accession number: [id number] Bone Density: Region BMD T-score Z-score Classification AP Spine (L1, L4) 1.398 3.3 5.4 Normal World Health Organization criteria for BMD impression classify patients as: Normal (T-score at or above -1.0), Osteopenia (T-score between -1.0 and -2.5), or Osteoporosis (T-score at or below -2.5). Previous Exams: Region Exam Age BMD T-score BMD Change BMD Change Date g/cm2 vs Baseline vs Previous AP Spine(L1, L4) 12/31/2022 72 1.398 3.3 0.081* 0.081* 10/12/2017 67 1.317 2.5 *Denotes significance at 95% confidence level, LSC for AP Spine = 0.022 g/cm2 Clinical Information Provided by Patient: Has used the following medications: Calcium Patient maximum height was 69 Menopause Age: 55 No regular weight bearing exercise Drinks caffeinated beverages Onset of menses at age 18 Number of children 0 Impression: The patient has normal bone mass. No significant bone loss was observed. Discussion: LOW RISK OF FRACTURE; BONE DENSITY IS WELL ABOVE THE MINIMUM DESIRABLE LEVEL AND ABOVE AVERAGE FOR AGE AND SEX AT ALL SKELETAL SITES TESTED. This person's bone density is above expected limits for age and sex. This is rarely clinically significant, but should be pursued if there are significant musculoskeletal complaints. The patient should follow a healthful lifestyle (good nutrition with adequate calcium and vitamin D, and appropriate weight-bearing exercise). Follow-Up: Consider repeating this study in 5 years or sooner if there is some new clinical indication. Reported by: MADELEINE on 12/31/2022 10:13:00 AM. Reviewed, dictated and finalized at location [facility]
== END ==
PROVIDERS: PCP Family Medicine; Visit Provider Family Medicine
DX: Z78.0 Asymptomatic menopausal state (principal)
CPT/HCPCS: 77080

== ENCOUNTER 2023-09-02 08:22 | Outpatient (CLI) | payer MEDICARE, SELFPAY ==
--- NOTE | ~2023-09-02 | MR_ITS ---
MRI of the right shoulder Technique: Axial proton-density fat-sat images, coronal proton density fat-sat and T2 fat-sat images, and sagittal T1-weighted and T2 fat-sat images were acquired. Clinical History: Pain Findings: There is advanced AC joint degenerative change, bony productive change of the distal clavic le, subacromial spur, and fluid in the joint space. Coracoclavicular, coracoacromial, and coracohumer al ligaments appear intact. Supraspinatus and infraspinatus tendons appear intact, with mild thinning of the supraspinatus tendon , no discrete tear evident. There is probable moderate tendinosis. Subscapularis tendon is intact wit h moderate to advanced tendinosis. Tendon of the long head of biceps is intact. No definite labral tear is seen. There is inferomedial humeral head osteophyte with moderate chondromalacia the humeral head and gleno id. Inferior glenohumeral ligament is intact. There is small amount of fluid in the subacromial/subde ltoid bursa. No muscle atrophy or edema evident. Impression: Advanced AC joint degenerative change. Probable mild thinning of the supraspinatus tendon with diffuse rotator cuff tendinosis but no defini te partial or full-thickness tear. Mild to moderate glenohumeral joint degenerative change. Mild subacromial/subdeltoid bursitis. Reviewed, dictated and finalized at [facility]. Impression: Advanced AC joint degenerative change. Probable mild thinning of the supraspinatus tendon with diffuse rotator cuff te ndinosis but no definite partial or full-thickness tear. Mild to moderate glenohumeral joint degenerative change. Mild subacromial/subdeltoid bursitis.
--- NOTE | ~2023-09-02 | MR_ITS ---
MRI of the left shoulder Technique: Axial proton-density fat-sat images, coronal proton density fat-sat and T2 fat-sat images, and sagittal T1-weighted and T2 fat-sat images were acquired. Clinical History: Pain Findings: There is advanced AC joint degenerative change with bony productive change of the distal cl avicle and acromion, and fluid in the joint space. Coracoclavicular, coracoacromial, and coracohumera l ligaments appear intact. Supraspinatus and infraspinous tendons are intact, without partial or full-thickness tear. There is m ild tendinosis with probable mild extrinsic impingement due to the AC joint degenerative change. Subs capularis tendon is intact, with mild tendinosis. Tendon of the long head of the biceps is intact. There is probable focal tear of the posterior inferior labrum. Remainder labrum is grossly intact. There is diffuse chondromalacia the humeral head and glenoid with tiny inferomedial humeral head oste ophyte. Inferior glenohumeral ligament is intact. No fluid distention of the subacromial/subdeltoid b ursa. No muscle atrophy or edema. Impression: Mild rotator cuff tendinosis without partial or full-thickness tear. Advanced AC joint degenerative change, and moderate glenohumeral joint degenerative change. Suspected focal tear of the posterior inferior labrum. Reviewed, dictated and finalized at location . Impression: Mild rotator cuff tendinosis without partial or full-thickness tear. Advanced AC joint degenerative change, and moderate glenohumeral joint degenera tive change. Suspected focal tear of the posterior inferior labrum.
== END 2023-09-02 08:23 | disposition home or self-care (01) ==
LOC: ANHIMG 08:26
PROVIDERS: PCP Family Medicine; Visit Provider Orthopaedic Surgery
DX: M19.012 Primary osteoarthritis, left shoulder (principal); M19.011 Primary osteoarthritis, right shoulder; M75.32 Calcific tendinitis of left shoulder; M75.31 Calcific tendinitis of right shoulder; M75.51 Bursitis of right shoulder
CPT/HCPCS: 73221

== ENCOUNTER 2023-10-12 08:05 | Outpatient (CLI) | payer MEDICARE, SELFPAY ==
--- NOTE | ~2023-10-12 | MM_ITS ---
EXAMINATION: MM screening melvin BI w maciel HISTORY: Screening mammogram TECHNIQUE: Craniocaudal and mediolateral oblique 3-D tomosynthesis images were obtained and synthetic 2-D images were generated. CAD analysis was submitted and interpreted. COMPARISON: 10/08/2022, 01/01/2021, 12/27/2019 BREAST PARENCHYMAL COMPOSITION:Not Dense. The breasts are almost entirely fatty FINDINGS: No suspicious mass, calcification, or architectural distortion are identified in either rachel ast to suggest malignancy. There has been no suspicious interval change. IMPRESSION: No mammographic evidence of malignancy. Recommend routine screening mammography in one year. BI-RADS Category 1: Negative Reviewed, dictated and finalized at location .
== END 2023-10-12 08:06 | disposition home or self-care (01) ==
LOC: ANHIMG 08:07
PROVIDERS: PCP Family Medicine; Visit Provider Family Medicine
DX: Z12.31 Encounter for screening mammogram for malignant neoplasm of breast (principal)
CPT/HCPCS: 77063; 77067

== ENCOUNTER 2024-08-01 11:54 | Outpatient (CLI) | payer MEDICARE, SELFPAY ==
--- NOTE | ~2024-08-01 | XR_ITS ---
Right Shoulder Technique: AP and axillary views were obtained. Clinical History: Shoulder lesion Findings: No fracture or dislocation is seen. Osseous alignment is anatomic. The glenohumeral and acr omioclavicular joint spaces are preserved. Soft tissues are unremarkable. Impression: Unremarkable right shoulder radiographs. Reviewed, dictated and finalized at [facility]. Impression: Unremarkable right shoulder radiographs.
--- NOTE | ~2024-08-01 | XR_ITS ---
Left Shoulder Technique: AP and axillary views were obtained. Clinical History: Shoulder lesion Findings: No fracture or dislocation is seen. Osseous alignment is anatomic. The glenohumeral and acr omioclavicular joint spaces are preserved. Soft tissues are unremarkable. Impression: Unremarkable left shoulder radiographs. Reviewed, dictated and finalized at [facility]. Impression: Unremarkable left shoulder radiographs.
== END 2024-08-01 11:55 | disposition home or self-care (01) ==
LOC: MICIMG 11:56
PROVIDERS: PCP Family Medicine; Visit Provider Orthopaedic Surgery
DX: M75.81 Other shoulder lesions, right shoulder (principal); M75.82 Other shoulder lesions, left shoulder
CPT/HCPCS: 73030

== ENCOUNTER 2024-10-17 07:37 | Outpatient (CLI) | payer MEDICARE, SELFPAY ==
--- NOTE | ~2024-10-17 | MM_ITS ---
EXAMINATION: MM screening melvin BI w maciel HISTORY: Screening mammogram TECHNIQUE: Craniocaudal and mediolateral oblique 3-D tomosynthesis images were obtained and synthetic 2-D images were generated. CAD analysis was submitted and interpreted. COMPARISON: 10/12/2023, 10/06/2022, 01/01/2021 BREAST PARENCHYMAL COMPOSITION:Not Dense. The breasts are almost entirely fatty FINDINGS: No suspicious mass, calcification, or architectural distortion are identified in either rachel ast to suggest malignancy. There has been no suspicious interval change. IMPRESSION: No mammographic evidence of malignancy. Recommend routine screening mammography in one year. BI-RADS Category 1: Negative Reviewed, dictated and finalized at location .
--- OUTSIDE RECORDS SUMMARY | 2024-10-17 07:42 | XMS_ITS | Referral Summary ---
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 [employer] INSURANCE [employer] Care Teams Marker Delivery Relationship Specialty Start Date End Date Jose Trujillo MD [address] [place] [address] PCP - General Family Medicine 01/21/21
--- OUTSIDE RECORDS SUMMARY | 2024-10-17 07:42 | XMS_ITS | Clinical Summary ---
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
--- OUTSIDE RECORDS SUMMARY | 2024-10-17 07:42 | XMS_ITS | Continuity of Care Document ---
Author Organization [facility] Address [address] [place] [address] Phone Care Team Providers Care Director Of Quality Name Role Phone [facility] Unavailable Unavail able Steph Goodwin Unavailable Unavailable Procedures Procedure Date Progressive Lens, Polycarb Progressive Lens, Polycarb Vision Svcs Frames Purchases Tint Plastic, Non-Stephani Special Base Curve Progressive Lens, Plastic Frames Deluxe Tint Photochromatic, Plastic Tax - Medical Eye Exam & Treatment Refraction Progressive Lens, Plastic Tint Photochromatic, Plastic Tax - Medical Eye Exam & Treatment Refraction Advance Directives Directive Yes / No Effective Date File Name No Information Encounters Encounter Description Practice Location Reason(s) For Visit Diagnoses Date Provider Providers Copied on Encounter [facility], [address], [place], [place], [address], [place] tel:[phone] [facility] No Information 1200 [address] [facility] [employer] . [address], [address], [place], [place], [address], [place]. tel:[phone] Consulting Provider: Steph Goodwin, [address] [place], [address]. tel:[phone] [facility], [address], [place], [place], [id number], [place] tel:[phone] [facility] No Information 3 9 [facility] . [address], [address], [place], [place], [address], [place]. tel:[phone] Consulting Provider: Steph Goodwin, [address] [place], [address]. tel:[phone] [facility], [address], [place], [place], [id number], [place] tel:[phone] [facility] No Information 9 [facility] . [address], [address], [place], [place], [address], [place]. tel:[phone] Referring Provider: Chiki Sweeney, [address] [place], [place] [address], [place], [address]. tel:[phone] g Provider: Bran Brambila, [address] [place], [place] [address]ate [facility], [place], [address]. tel:[phone] [facility], [address], [place], [place], [address], [place] tel:[phone] [facility] No Information 9 Ulysses Monet. [facility] [facility] [address] , [address], [place], [address], [place]. tel:[phone] [facility], [address], [place], [place], [address], [place] tel:[phone] [facility] No Information 7 [facility] . [address], [address], [place], [place], [address], [place]. tel:[phone] Referring Provider: Chiki Sweeney, [facility] [facility] [address], [place], [address]. tel:[phone] g Provider: Lizz Carty, [address], [place], [address]. tel:[phone] [facility], [address], [place], [place], [address], [place] tel:[phone] [facility] No Information [address]. [address], [place], [address], [place]. tel:[phone] Family History Family Member Type Diagnosis Age At Onset No Information Payers Payer name Insurance type Covered green party ID Authoriza tion(s) No Information Social History Type Description Quantity Date Captured Comments Sex Female Smoking Status No Information Chief Complaint And Reason For Visit No Information Reason For Referral Reason For Referral No Information History Of Present Illness Encounter Date Complaint History Of Prese nt Illness No Information Functional Status Date Functional Assessmen t No Information Instructions Date Instruction Additional Infor mation No Information Assessments Type Assessment Date No Information Patient Care Teams Name Effective Dates (start - stop) Status Members No Information
--- OUTSIDE RECORDS SUMMARY | 2024-10-17 07:42 | XMS_ITS | Clinical Summary ---
Author Organization [facility] Address [address], [address] [address] Phone Care Team Providers Care Shut Off Worker Name Role Phone Seth Rice DO Unavailable [phone] Antonietta Garza MD Primary Care Provider [phone] Allergies No known active allergies Medications amLODIPine-benaz epril (LOTREL) 5-20 MG Capsule Take 1 Cap by mouth daily. Active hydroCHLOROthiaz marisol 25 MG Tablet Take 25 mg by mouth daily. Active solifenacin (VESICARE) 10 MG Tablet Take 10 mg by mouth daily. Active Multiple Vitamins-Mineral s (CENTRUM SILVER PO) Take by mouth. Active Calcium Carbonate Antacid (TUMS PO) Take by mouth. Active Naproxen Sodium (ALEVE PO) Take by mouth. Active [place]-3 Fatty Acids (FISH OIL PO) Take by mouth. Active famotidine (PEPCID) 20 MG Tablet Take 20 mg by mouth 2 times daily. Active atorvastatin (LIPITOR) 20 MG Tablet 11/21/2016 Active aspirin EC 81 MG Tablet Delayed Response Take 81 mg by mouth daily. Active omeprazole (PRILOSEC) 20 MG CAPSULE DELAYED RELEASE Take 2 Caps by mouth daily. 60 Cap 11 01/21/2017 Active Immunizations Immunization Administration Dates Next Due Covid-19, Mrna, Lnp-s, Pf, 30 Mcg/0.3 Ml Dose (P fizer) 05/17/2020,04/26/2020 Family History Medical History Relation Name Comments Cancer Father esophageal Kidney Cancer Father Heart Attack Mother Cancer Other Aunt Relation Name Status Comments Father Mother Other Social History Tobacco Use Types Packs/Day Years Used Date Smoking Tobacco: Never Smokeless Tobacco: Never Alcohol Use Standard Drinks/Week Comments Yes 1 (1 standard drink = 0.6 oz pur e alcohol) Comments No Sex and Gender Information Value Date Recorded Sex Assigned at Not on file Legal Sex Female 8:59 PM CDT Gender Identity Not on file Sexual Orientation Not on file Last Filed Vital Signs Vital Sign Reading Time Taken Comments Blood Pressure 150/100 01/21/2017 1:25 PM CDT Pulse 76 01/21/2017 1:25 PM CDT Temperature 37 C (98.6 F) 01/21/2017 1:25 PM CDT Respiratory Rate - - Oxygen Saturation 96% 01/21/2017 1:25 PM CDT Inhaled Oxygen Concentration - - Weight 107.2 kg (236 lb 6.4 oz) 01/21/2017 1:25 PM CDT Height 172.7 cm (5' 8) 01/21/2017 1:25 PM CDT Body Mass Index 35.94 01/21/2017 1:25 PM CDT Plan of Treatment Health Maintenance Due Date Last Done Comments DEXA Bone Density 1950 Hepatitis C Virus (HCV) Screening 1950 TdaP Immunization 1950 Cologuard 2002 Immunochemical Fecal Occult Blood 2002 Mammogram 2002 Pneumococcal Immunization (5 0+ years) (1 of 1 - PCV) 2002 Zoster Immunization (1 of 2) 2002 Influenza Immunization (#1) 2023 SARS-COV-2 Immunization (2023- season) 2023 05/17/2020, 04/26/2020 Respiratory Syncytial Virus (RSV) Immunization (Adult) (1 - 1-dose 75+ series) 09/05/2027 Colonoscopy 02/10/2028 02/09/2018 Colorectal Cancer Screening 02/10/2028 Hepatitis B Immunization Aged Out No longer eligible based on patient's age to complete this topic Meningococcal Immunization (ACWY) Aged Out No longer eligible b ased on patient's age to complete this topic Rotavirus Immunization Aged Out No lo nger eligible based on patient's age to complete this topic Procedures Procedure Name Priority Date/Time Associated Diagnosis Comments COLONOSCOPY Routine 02/09/2018 from Last 3 Months or Most Recently Relevant to Health Maintenance Results * HM COLONOSCOPY (02/09/2018) Seth Rice DO PROCEDURE/MINOR SURGICAL ORDERA BLES Final Result from Last 3 Months or Most Recently Relevant to Health Maintenance Insurance MEDICARE [employer] Care Teams Shut Off Worker Relationship Specialty Start Date End Date Antonietta Garza MD [address] [facility] [address] [place] [address] PCP - General Family Medicine 09/13/18 Seth Rice DO Gastroenterology 12/20/15
--- OUTSIDE RECORDS SUMMARY | 2024-10-17 07:42 | XMS_ITS | Data Portability ---
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 She has rotator cuff pathology both shoulders she is not interested in surgery she has had her hips and knees done and would like to try to avoid further surgery at this point. She gets reasonable relief the injections this is done with 20 mg Kenalog 4 cc 1% lidocaine. She will continue with exercises at home and anti-inflamma tory medication. Follow up in a month to see how she is doing I told her she can have injections every 3 months if she wishes. thanh Not available 10/29/2022 09:49:58 Plan of Treatment Reminders Order Date Submit Date Provider Last Modified By Organization Details Last Modified Time Details Appointments None recorded. Lab None recorded. Referral None recorded. Procedures injection/a spiration joint/bursa (PROC) - in office procedure, administere d by provider 2022 023 [email or web address] In-Office Order, Internal Use Only DO Not Attach Compendium DO Not Attach Compendium, Do Not Delete/merge, [id number] 09:08:16 Surgeries None recorded. Imaging None recorded. Medication Orders Kenalog 10 mg/mL suspension for injection 2022 023 [email or web address] [facility], [address] [place], [address], 3 09:20:08 ropivacaine (PF) 5 mg/mL (0.5 %) injection solution 2022 023 kirsten Bond [facility], [address], [place], [place], [address], 3 09:20:08 Patient TargetsNo targets recorded. Patient InstructionsNo instructions recorded. Reason for Referral None Reported. Results Created Date Observation Date Name Description Value Unit Range Abnormal Flag Note LastModifiedBy Organization Detail LastModifiedTime 12/27/19 21 XR, hip + pelvi s, bilat eral No observ ation record ed. [id number] [facility] [address], [place], [address], 06/17/2022 13:55:29 11/21/19 22 XR, hip + pelvi s, bilat eral No observ ation record ed. [id number] [facility] [address], [place], [address], 06/17/2022 13:55:29 01/27/20 22 XR, shoul emily No observ ation record ed. [id number] [facility] [address], [place], [address], 06/17/2022 13:55:29 Result Notes None recorded. Problems Name Problem SNOMED Code Status Onset Date Resolution Date Notes Provider Name and Address Organization Details Recorded Time Arthritis of left hip 5251671526468 105 Active 2019 Not Available [facility] 3 13:53:07 Disorder of shoulder 551462551 Active Not Available [facility] 3 13:53:07 Pain of left shoulder joint 3201439496939 9109 Active 2021 Not Available [facility] 3 13:53:07 Partial thickness rotator cuff tear 172449779 Active 2021 Not Available [facility] 3 13:53:07 Trochanter ic bursitis of left hip 4972565198523 03 Active 2021 Not Available [facility] 3 13:53:07 Osteoarthr itis 212142745 Active 2021 Not Available [facility] 3 13:53:07 History of total hip arthroplas ty 482062865172 Active 2019 Not Available [facility] 3 13:53:08 Bilateral shoulder joint pain 3057432435240 9104 Active 2022 Margie [facility], [employer] 3 09:07:09 Problem Notes None recorded. Procedures Surgical History Date Name Laterality Status Provider Name and Address Organization Details Recorded Time 3 Ortho - Cortisone Injection completed Carloz Godwin MD [address] [place] [address] [address], [place], [address], [employer] 10/29/2022 09:50:35 Imaging Results None recorded. Procedure Notes None recorded. Medical Equipment None Reported. Medications Name Sig Start Date Stop Date Status Note LastModified by Organization Details LastModified Time cyclobenzap rine 10 mg tablet Take 1 tablet 3 times a day by oral route as needed. 12/26 completed Not Available Not Available Not Available amoxicillin 500 mg capsule TAKE 4 CAPSULES BY MOUTH 1 HOUR PRIOR TO DENTAL APPOINTME NT active Not Available Not Available No t Available prednisone 10 mg tablet TAKE ONE TABLET BY MOUTH THREE TIMES DAILY FOR THREE DAYS, THEN ONE TABLET TWICE DAILY FOR TWO DAYS, THEN ONE TABLET ONCE DAILY FOR ONE DAY active Not Available Not Available No t Available atorvastati n 20 mg tablet TAKE 1 TABLET BY MOUTH EVERY DAY AT BEDTIME active Not Available Not Available No t Available trazodone 50 mg tablet TAKE 1 TO 2 TABLETS BY MOUTH ONCE DAILY AT BEDTIME active Not Available Not Available No t Available meloxicam 15 mg tablet active Not Available Not Available Not Available omeprazole 40 mg capsule,del ayed release active Not Available Not Available Not Available tramadol 50 mg tablet TAKE 1 TABLET BY MOUTH THREE TIMES DAILY NEEDED FOR PAIN active Not Available Not Available No t Available prednisone 10 mg tablets in a dose pack Take 1 tab by mouth, 3 times a day for 3 daysTake 1 tab by mouth 2 times a day for 2 daysTake 1 tab by mouth once a day for 1 day active Not Available Not Available No t Available meloxicam 7.5 mg tablet active Not Available Not Available Not Available Kenalog 10 mg/mL suspension for injection Take 40 mg by injection route. 2022 active [facility]: 0003- 0494- 20 Not Available Not Available Not Available amlodipine 5 mg-benazepr il 20 mg capsule TAKE 1 CAPSULE BY MOUTH IN THE MORNING active Not Available Not Available No t Available benazepril 20 mg tablet Take 1 tablet every day by oral route. 2018 active Not Available Not Available Not Avai lable hydrochloro thiazide 25 mg tablet Take 1 tablet every day by oral route. active Not Available Not Available No t Available [place] 7.5 mg-325 mg tablet Take 1 tablet every 6 hours by oral route. 01/22 completed Not Available Not Available Not Available albuterol sulfate HFA 90 mcg/actuati on aerosol inhaler INHALE 1 TO 2 PUFFS BY MOUTH EVERY 4 HOURS NEEDED FOR SHORTNESS OF BREATH OR WHEEZING active Not Available Not Available No t Available [place] 5 mg-325 mg tablet Take 1 tablet every 6 hours by oral route. 12/26 completed Not Available Not Available Not Available Bactrim DS 800 mg-160 mg tablet Take 1 tablet every 12 hours by oral route. active Not Available Not Available No t Available atorvastati n 2018 active Not Available Not Available Not Avai lable meloxicam 2020 active Not Available Not Available Not Avai lable omeprazole 2020 active Not Available Not Available Not Avai lable tramadol 2020 active Not Available Not Available Not Avai lable Tums 2020 active Not Available Not Available Not Avai lable [place] 3 2020 active Not Available Not Available Not Avai lable amlodipine 5 mg-benazepr il 40 mg capsule active Not Available Not Available Not Available lidocaine (PF) 10 mg/mL (1 %) injection solution In office injection administe red by the provider active [facility]: 0409- 4276- 17 Not Available Not Available Not Available Xarelto 10 mg tablet Take 1 tablet every day by oral route. 12/26 completed Not Available Not Available Not Available ropivacaine (PF) 5 mg/mL (0.5 %) injection solution Take 40 mg by injection route. 2022 active [facility] 01109 -064- 01 Not Available Not Available Not Available omeprazole 20 mg-clarithr omycin 500 mg-amoxicil patrice 500 mg (40) pack Take every day by oral route. 01/22 completed Not Available Not Available Not Available [facility] 2020 active Not Available Not Available Not Avai lable Vitals Date Recorded Body height Provider Name an d Address Organization Details Last Updated DateTime 10/29/2022 170.18 cm Margie Hill [facility] [employer] [facility] 10/29/2022 09:05:55 Date Recorded Body mass index (BMI) Body height Body weight Provider Name and Address Organization Details Last Updated DateTime 11/20/2021 37.6 kg/m2 170.18 cm 305071.17 g Not Available [facility] 06/17/2022 13:52:36 Date Recorded Body mass index (BMI) Body height Body weight Provider Name and Address Organization Details Last Updated DateTime 12/18/2021 36.8 kg/m2 170.18 cm 974312.21 g Not Available [facility] 06/17/2022 13:52:36 Date Recorded Body mass index (BMI) Body height Body weight Provider Name and Address Organization Details Last Updated DateTime 12/26/2020 35.2 kg/m2 170.18 cm 224734.28 g Not Available [facility] 06/17/2022 13:52:36 Date Recorded Body mass index (BMI) Body height Body weight Provider Name and Address Organization Details Last Updated DateTime 01/26/2022 36.8 kg/m2 170.18 cm 296285.21 g Not Available [facility] 06/17/2022 13:52:36 Social History None recorded. Functional Status Question Answer Note LastModified by Organizat ion Details LastModified Time What is your level of alcohol consumption? None [id number] Information not available 06/17/2022 Mental Status None recorded. Family History Relationship Description Onset Age of this Age Resolved Age Notes LastModified by Organization Details LastModified Time Mother Hypertensive disorder [id number] Not available 06/17/2022 13:52:28 Mother Family history of malignant neoplasm [email or web address] Not available 2022 09:01:08 Medical History Condition Response BLINDNESS N KIDNEY STONES N CARPAL TUNNEL SYNDROME N MRSA N LUNG DISEASE/DISORDER N HISTORY OF DRUG ABUSE N RADIATION / CHEMOTHERAPY N COPD N ANKLE PAIN N SPORTS INJURY N BLOOD DISEASES N SCHIZOPHRENIA N SHINGLES N DEPRESSION (INCLUDING POST ) N SHOULDER PAIN N BOWEL PROBLEMS N STROKE/TIA N KNEE PAIN N ULCERS Y BENIGN PROSTATIC HYPERPLASIA N OBESITY N GERD/NAUSEA N ANEURYSM N URINARY/BLADDER/KIDNEY PROBLEMS Y CORONARY ARTERY DISEASE (CAD) N ADDICTION CONCERNS N USE OF BLOOD THINNERS N SKIN PROBLEMS N EMPHYSEMA N MUSCLE,JOINT OR BONE PROBLEMS N DVT N STOMACH ULCERS N BLOOD CLOTS N USE OF NSAIDS N CONCUSSION OR SPINAL TRAUMA N NEUROPATHY N AIDS/HIV N FRACTURES N ELBOW PAIN N HYPERTENSION Y TOURETTE'S N ANXIETY DISORDER N Metal allergy N BLOOD TRANSFUSION N ANEMIA/BLOOD DISORDER N BIPOLAR DISORDER N BRONCHITIS N OSTEOARTHRITIS N TUBERCULOSIS N FOOT PROBLEM N HEART VALVE DISORDERS N ALLERGIES/HAYFEVER N SOFT TISSUE INJURY N INFECTIOUS DISEASE N HEART ARRHYTHMIA N INSOMNIA N RHEUMATOID ARTHRITIS N HIGH CHOLESTEROL / HYPERLIPIDEMIA N EDEMA N CHRONIC PAIN SYNDROME N CAROTID BLOCKAGE N BACK / NECK PROBLEMS N HAVE YOU BEEN HOSPITALIZED OR SEEN IN [facility] IN THE PAST YEAR ? N BURSITIS N HERNIATED DISC N DIALYSIS N FIBROMYALGIA N OSTEOPOROSIS N ARTHRITIS Y NO SIGNIFICANT PAST MEDICAL HISTORY N PERIPHERAL NEUROPATHY N DIABETES, TYPE N HEARTBURN / REFLUX N HEPATITIS / LIVER DISEASE N GOUT N SLEEP DISORDER N ALZHEIMER'S DISEASE N HERPES N SEIZURES/EPILEPSY N HEADACHES/MIGRAINES N VASCULAR DISEASE N HIP PAIN N Blood Disorder N DIZZINESS N HEAD TRAUMA OR INJURY N HEART DISEASE/HEART PROBLEMS N MULTIPLE SCLEROSIS N CARDIAC ARRHYTHMIA N CANCER: SPECIFY N ANESTHESIA COMPLICATIONS N ATRIAL FIBRILLATION N AUTOIMMUNE DISEASE N Gynecological HistoryNo gynecological history recorded. Obstetrics History GPAL:G 0 P 0 0 0 0 Past Encounters Encounter ID Performer Location Encounter Start Date Encounter Closed Date Diagnosis/Indication Diagnosis SNOMED-CT Code Diagnosis ICD10 Code Diagnosis Note [id number] Carloz Godwin MD [facility] [address] [place] [address] 12/26/2020 00:00:00 12/26/2020 11:37:43 [id number] Carloz Godwin MD [facility] [address] [place] [address] 11/20/2021 00:00:00 11/20/2021 09:58:30 [id number] Carloz Godwin MD [facility] [address] [place] [address] 12/18/2021 00:00:00 12/18/2021 10:20:52 [id number] Carloz Godwin MD [facility] [address] [place] [address] 01/26/2022 00:00:00 01/26/2022 09:35:21 [id number] Carloz Godwin MD [facility] [address] [place] [address] 10/29/2022 08:59:53 10/29/2022 10:24:38 Partial thickness rotator cuff tear 742030918 M75.102 Disorder of shoulder 118 837986 M25.819 Bilateral shoulder joint pain 7698848001 1043904 M25.511 M25.512 Health Concerns Section Related Observation LastModified by Organization Detai ls LastModified Time None Recorded Concern Status LastModified by Organization Details LastModified Time None Recorded Advance Directives Directive None Recorded Payers Insurance Date Sequence Insurance Name Policy Number Policy Malone Covered Member ID Malone Member ID Guarantor Name 08/09/2023 1 [place] [employer] [id number] Carolyn Morton 11/03/2022 2 [employer] (MEDICARE SUPPLEMENT) Carolyn camp [id number] Carolyn Morton Notes Date Note Type Note Provider Name and Address Organization Details Recorded Time 12/26/2020 text/html Hip(s)Reported bypatient.Location:bi lateral; lateral Quality:throbbing; superficial; frequent Severity:moderate Duration:continuous since onset Timing:occasional Context:overuse Alleviating Factors:lying down; heat; ice; rest; exercise; limited weight bearing Aggravating Factors:standing; walking; bending/squatting Associated Symptoms:no numbness; no redness; no ecchymosis; no catching/locking; no popping/clicking; no buckling; no grinding; no instability; no radiation down leg; no drainage; no fever; no chills; no weight loss; no change in bowel/bladder habits;weakness;swell ing Not Available [employer] [facility] 12/26/2020 11:37:43 11/20/2021 text/html Hip(s)Reported bypatient.Location:la teral Quality:throbbing; superficial; frequent Severity:moderate Duration:continuous since onset Timing:occasional Context:overuse Alleviating Factors:lying down; heat; ice; rest; exercise; limited weight bearing Aggravating Factors:standing; walking; bending/squatting Associated Symptoms:no numbness; no redness; no ecchymosis; no catching/locking; no popping/clicking; no buckling; no grinding; no instability; no radiation down leg; no drainage; no fever; no chills; no weight loss; no change in bowel/bladder habits;weakness;swell ing Not Available [employer] 11/20/2021 09:58:30 12/18/2021 text/html Hip(s)Reported bypatient.Location:la teral Quality:throbbing; superficial; frequent Severity:moderate Duration:continuous since onset Timing:occasional Context:overuse Alleviating Factors:lying down; heat; ice; rest; exercise; limited weight bearing Aggravating Factors:standing; walking; bending/squatting Associated Symptoms:no numbness; no redness; no ecchymosis; no catching/locking; no popping/clicking; no buckling; no grinding; no instability; no radiation down leg; no drainage; no fever; no chills; no weight loss; no change in bowel/bladder habits;weakness;swell ing Not Available [employer] 12/18/2021 10:20:52 01/26/2022 text/html ShoulderReported bypatient.Hand Dominance:right Location:left; anterior; lateral Quality:throbbing; frequent Severity:moderate Timing:recurrent; occasional Duration:continuous since onset Aggravating Factors:pushing/pulli ng; throwing; damp weather Alleviating Factors:rest; elevation; stretching; NSAIDs Associated Symptoms:no weakness; no numbness; no tingling; no redness; no ecchymosis; no catching/locking; no popping/clicking; no buckling; no grinding; no instability; no radiation down arm; no drainage; no fever; no chills; no weight loss; no change in bowel/bladder habits;swelling;warmt h Not Available [facility] [employer] [facility] 01/26/2022 09:35:21 10/29/2022 text/html Patient presents shoulder pain bilaterally. She has had pain in both shoulders for some time it is worse with activity somewhat relieved by rest she has impingement pain with overhead motion she is weak in abduction external rotation she does have grinding crepitus and some degenerative changes as well. Carloz Godwin MD [address] [place] [address], [address], [facility] [employer] [facility] 10/29/2022 09:51:27 OBGyn Episode No OBEpisode recorded.
--- OUTSIDE RECORDS SUMMARY | 2024-10-17 07:42 | XMS_ITS | Continuity of Care Document ---
Author Organization [facility] Address [id number] formerly [facility] [address] [place] [address] Phone Care Team Providers Care Sales Merchandise Associate Name Role Phone Silva Arthur Unavailable Unavailable Allergies, Adverse Reactions, Alerts Substance Reaction Status Criticality No Known Allergies Active No Inform ation No Known Allergies Active No Inform ation Medications Medication Instructions Dosage Effective Dates (start - stop) Status Comments amlodipine 5 mg-atorvastatin 20 mg tablet take 1 tablet by oral route every day 1.00 tablet - Active hydrochlorothiazide 25 mg tablet take 1 tablet by oral route every day 25 MG - Active TRAZODONE HCL (unknown strength) take 1 tablet by oral route 3 times every day after meals Not Available - Active omeprazole 40 mg capsule,delayed release take 1 capsule by oral route every day before a meal 40 MG - Active Centrum Silver Women 8 mg iron-400 mcg-300 mcg tablet take 1 tablet by oral route every day 1 tablet - Active TRAMADOL HCL (unknown strength) take 2 tablet by oral route every 6 hours as needed Not Available - Active FISH OIL (unknown strength) Not Available - Active meloxicam 15 mg tablet take 1 tablet by oral route every day 15 MG - Active Procedures Procedure Date Ophth Serv: Med Exam; Comp Est Jan [facility] Ophth Serv: Med Exam; Comp Est Jan [facility] Postop F/u Visit Incld Global 3 REFRACTION FACILITY No Event On Discharge Discission 2nd Cataract; Laser 23 Discission 2nd Cataract; Laser FACILITY No Event On Discharge Offic/outpt E&m Estab Mod-hi 2 Ophth Serv: Med Exam; Comp Est 22 OCT [facility] Postop F/u Visit Incld Global 1 Postop F/u Visit Incld Global 1 No Charge REFRACTION Same Day PostOp Visit FACILITY Inj, Dexamethasone Intraocular Suspensio n No Event On Discharge CATARACT SURG W/IOL, 1 STAGE Anes- Eye; Lens Surg IOL Master Offic/outpt E&m Estab Low-mod 1 Postop F/u Visit Incld Global 1 No Charge REFRACTION Same Day PostOp Visit CATARACT SURG W/IOL, 1 STAGE Anes- Eye; Lens Surg FACILITY Inj, Dexamethasone Intraocular Suspensio n No Event On Discharge Surgery Pre-Payment Determ Refractive State Post Op 021 Ophth Serv: Med Exam; Interm E IOL Master OCT Mac Ophth Serv: Med Exam; Comp Est 20 REFRACTION Desk Payment Ophth Serv: Med Exam; Comp Est 19 REFRACTION Desk Payment Ophth Serv: Med Exam; Comp Est 18 REFRACTION Desk Payment Ophth Serv: Med Exam; Comp Est 17 REFRACTION Ophth Serv: Med Exam; Comp New 15 REFRACTION Advance Directives Directive Yes / No Effective Date File Name No Information Encounters Encounter Description Practice Location Reason(s) For Visit Diagnoses Date Provider Providers Copied on Encounter [facility], [address] [facility] [address] , [place], [place], [id number] , tel:[phone] [facility] ERM (chief complaint) Epiretinal membrane (ERM), bilateralPresence of intraocular lens Jun-0 5 Jerson Ascencio. [address] formerly [facility] [address] [place], [place], [id number], [place]. tel:[phone] Referring Provider: Silva Arthur, [address] [place] [address], [address] . tel:[phone] [facility], [address] [place] [address] 19 , [place], [place], [address] , tel:[phone] [facility] ERM (chief complaint) Epiretinal membrane (ERM), bilateralPresence of intraocular lensOther vitreous opacities, bilateral 4 Jerson Silva. [address] [place] [address], [id number], [place]. tel:[phone] Referring Provider: Silva Arthur, [address] [place] [address], [address] . tel:[phone] [facility], [address] [place] [address] 19 , [place], [place], [id number] , tel:[phone] [facility] Post op (chief complaint) Presence of intraocular lensPresbyopiaEpiret inal membrane (ERM), bilateral 3 Sonal OD Shanell. [address] [facility] [address], [place], [place], [id number], [place]. tel:[phone] Referring Provider: Silva Nava, [address] , [place], [address] . tel:[phone] [facility] [place], [address] [place] [address] 19 , [place], [place], [id number] , tel: [phone] [facility] Other secondary cataract, left eye 3 [facility]. [address] [facility] [address] [place], [place], [id number], . tel:[phone] Referring Provider: Josef Davidson MD PhD, [address] [facility] [address] [place], [address] . tel:[phone] [facility], [address] formerly [facility] [address] [place], [place], [address] , tel: [phone] [facility] No Information 3 Lety GAMINO PhD Josef. [address] [facility] [address] [place], [place], [id number], . tel:[phone] Referring Provider: Josef Davidson MD PhD, [address] [facility] [address] [place], [place], [address] [place] [address] . tel:[phone] [facility], [address] [facility] [address] [place], [place], [address] , tel: [phone] [facility] No Information 2 Lety GAMINO PhD Josef. [address] [facility] [address] [place], [place], [address], . tel:[phone] Referring Provider: Josef Davidson MD PhD, [address] [facility] [address] [place], [address] [place] [address] . tel:[phone] [facility] [place], [address] [place] [address] 19 [place], [address] , tel:[phone] [facility] Other secondary cataract, right eye 2 [facility]. [address] [facility] [address] [place], [place], [address], . tel:[phone] Referring Provider: Josef Davidson MD PhD, [address] [facility] [address], [place], [address] . tel:[phone] Offic/outpt E&m Estab Mod-hi 2 [facility], [address] [facility] 19 , [place], [place], [id number] , tel:[phone] [facility] blurry vision (chief complaint) glare (chief complaint) PCO (posterior capsule opacification), rightPCO (posterior capsule opacification), leftEpiretinal membrane (ERM), bilateral 2 Lety GAMINO PhD Josef. [address] [facility] [address], [place], [place], [id number], [place]. tel:[phone] Referring Provider: Silva Nava, [address] [place], [address] . tel:[phone] [facility] [address] [place] [address], [place], [place], [id number] , tel:[phone] [facility] ERM (chief complaint) Epiretinal membrane (ERM), bilateralPCO (posterior capsular opacification), bilateralPresence of intraocular lensPVD (posterior vitreous detachment), right eye 2 Jerson Ascencio. [address], [place], [place], [id number], [place]. tel:[phone] Referring Provider: Silva Nava, [address] [place], [address] . tel:[phone] [facility], [address] [place] [address], [place], [place], [id number] , tel:[phone] [facility] Post Op (chief complaint) Presence of intraocular lens 1 Jerson Ascencio. [address] [facility] [address] , [place], [place], [id number], [place]. tel:[phone] Referring Provider: Silva Nava, [address] [place], [address] . tel:[phone] [facility] [address] [facility] , [place], [place], [address] , tel:[phone] [facility] Post Op (chief complaint) Presence of intraocular lensPresbyopia 1 Jerson Ascencio. [address], [place], [place], [id number], [place]. tel:[phone] Referring Provider: Silva Nava, [address] , [place], [address] . tel:[phone] [facility], [address] [facility] , [place], [place], [address] , [phone] [facility] Presence of intraocular lens 1 [place] Silva. [address], [id number], [place]. tel:[phone] Referring Provider: [place], [address], [address] . tel:[phone] [facility], [address], [id number] , tel:[phone] [facility] No Information 1 Miky Alfaro. [address], [id number], . tel:[phone] Referring Provider: [place], [address], [address] . tel:[phone] [facility] [place], [address] [place] [address], [id number] , tel:[phone] [facility] No Information 1 [facility]. [address], [id number], . tel:[phone] Referring Provider: [place], [address], [address] . tel:[phone] [facility], [address] [place] [address], [place], [place], [address] , tel:[phone] [facility] No Information Miky Alfaro. [address], [id number], . tel:[phone] Referring Provider: Dominic Bolaños MD, [address] [place] [address], [address] . tel:[phone] Offic/outpt E&m Estab Low-mod [facility], [address] [place] [address], [place], [place], [id number] , tel:[phone] [facility] Blurry vision (chief complaint) Glare (chief complaint) Post Op (chief complaint) Age-related nuclear cataract, right eyePresence of intraocular lensPresbyopiaPucker ing of macula, left eye 1 Jerson Ascencio. [address] [place] [address], [id number], . tel:[phone] Referring Provider: Silva Nava, [address] [place], [address] . tel:[phone] [facility], [address] [place] [address], [id number] , tel:[phone] [facility] Presence of intraocular lens 1 Nava OD Niurka. [address] [place] [address], [id number], . tel:[phone] Referring Provider: [place], [address], [address] . tel:[phone] [facility], [address] [place] [address], [address] [place] [address] , tel:[phone] [facility] No Information 1 Miky Alfaro. [address], [address] [place] [address], . tel:[phone] Referring Provider: [place], [address], [address] [place] [address] . [phone] [facility] [place], [address] [place] [address], [address] [place] [address] , tel:[phone] [facility] No Information 1 [facility]. [address], [address] [place] [address], . tel:[phone] Referring Provider: [place], [address], [address] [place] [address] . tel:[phone] [facility], [address], [address] [place] [address] , tel:[phone] 01 [employer] [place] No Information 1 Miky Alfaro. [address], [address] [place] [address], . tel:[phone] Referring Provider: [place], [address], [address] [place] [address] . tel:[phone] [facility], [address], [address] [place] [address] , [phone] [facility] No Information 1 Miky Alfaro. [address], [address] [place] [address], . tel:[phone] Referring Provider: [place], [address], [address] [place] [address] . tel:[phone] [facility], [address] [facility] [address], [place], [place], [address] , tel: [phone] [facility] Blurry vision (chief complaint) Glare (chief complaint) Age-related nuclear cataract, bilateralBilateral keratoconjunctivitis sicca, not specified as Sjogren'sEpiretinal membrane (ERM) of left eyeDrusen of left macula Dec-2 2-202 0 Miky Alfaro. [address] [facility] , [place], [place], [id number], . tel:[phone] Referring Provider: Silva Nava, [address] [place], [address] . tel:[phone] [facility], [address], [place], [place], [address] , tel:[phone] [facility] Decreased vision (chief complaint) Glare (chief complaint) Age-related nuclear cataract, bilateralHypermetrop ia, bilateral Dec-0 8-202 0 Jerson Silva. [address], [place], [place], [id number], . tel:[phone] Referring Provider: Silva Nava, [address] [place], [address] . tel:[phone] [facility], [address], [place], [place], [id number] , tel:[phone] [facility] Decreased vision (chief complaint) Age-related nuclear cataract, bilateralHypermetrop ia, bilateralBilateral keratoconjunctivitis sicca, not specified as Sjogren's 201 9 Jerson Silva. [address] [facility] 19 , [place], [place], [address], . tel:[phone] Referring Provider: Silva Nava, [address] [place], [address] . tel:[phone] [facility], [address] [place] [address], [id number] , [phone] [facility] Decreased vision (chief complaint) Age-related nuclear cataract, bilateralHypermetrop ia, bilateral 8 [place] Silva. [address], [id number], . tel:[phone] Referring Provider: Silva Nava, [address] [place], [address] . tel:[phone] [facility], [address], [id number] , [phone] [facility] floaters (chief complaint) Age-related nuclear cataract, bilateralHypermetrop ia, bilateral 7 [place] Silva. [address], [id number], . tel:[phone] Referring Provider: Silva Nava, [address] [place], [address] . tel:[phone] [facility], [address], [id number] , tel:[phone] [facility] floaters (chief complaint) broken glasses (chief complaint) Senile nuclear cataractFloatersPres byopia Terri Rojas. [address], [id number], . tel:[phone] Referring Provider: Bob Murray [place], [address], [address] . tel:[phone] Family History Family Member Type Diagnosis Age At Onset Problem (finding) No family hist ory of Macular degeneration Father Problem (finding) Cancer, unknown Problem (finding) No family history of Gl aucoma Mother Problem (finding) Family history unknown Payers Payer name Insurance type Covered alliance party ID Authoriza tion(s) Medicare [id number] [employer] [id number] CI [id number] Social History Type Description Quantity Date Captured Comments Alcohol Use Details No Caffeine Use Details Unknown Tobacco Use Status Current non-smoker Smoking Status Never smoker Non-Smoking Tobacco Use Details : No Details Available : No Details Available Sex Female Chief Complaint And Reason For Visit From encounter dated '06/19/2024 14:20'. ERM (chief complaint). Description: Patient presents for 1 year follow up of ERM in both eyes, withreview of OCT. Patient states that vision has remained stable since last visit, no changes. Reason For Referral Reason For Referral No Information Plan Of Treatment Date Type Action Status Appointment Carolyn Bergeron Patient Education Learning About YAG Lase r Capsulotomy completed Patient Education Cataracts: Care Instruc tions completed Patient Education Cataracts: Care Instruc tions completed Patient Education Cataracts: Care Instruc tions completed Patient Education Cataracts: Care Instruc tions completed History Of Present Illness Encounter Date Complaint History Of Prese nt Illness ERM Patient presents for 1 year follow up of ERM in both eyes, with review of OCT. Patient states that vision has remained stable since last visit, no changes. ERM Patient presents for 1 year follow up of ERM in both eyes, with review of OCT. Patient states that vision has remained stable since last visit, no changes. Post op Patient presents for post op S/P Yag laser right eye 03/27/22 and left eye 04/24/22. Patient states vision has improved. blurry vision The patient comp lains of blurry vision in both eyes x few months. Notes difficulty reading the fine print in her cook books. glare The patient comp lains of glare in both eyes x few months. The patient notes she has to wear sunglasses during the day while driving to avoid glare from the sun. ERM Patient presents for 1 year follow up ERM, with review of OCT. Patient reports no noticeable changes in vision over the last year, no concerns at this time. Post Op Patient presents for a 4 weeks cat final post op in both eyes. Per patient states vision in both eyes doing really well. No pain or discomfort. Post Op patient presents for a 1 week cat post op in the right eye. S/P PE &IOL OD x 05/14/2020. Per patient states vision in the right eye doing really well, no pain or discomfort. Patient is compliant with post op drops and alphagan. Post Op Patient presents for 1 week post op of PE IOL in left eye on 04/30/20. Patient states increase in vision in left eye as well as increase in colors and brightness. Patient states compliant with post surgery drops. Patient denies any pain, discomfort, flashes or floaters. Glare Patient presents with bothersome glare in right eye gradually x few months. Patient states glare from oncoming headlights look like halos making it difficult to see clearly at night. Blurry vision Patient presents with blurry vision in right eye gradually x few months. Patient states trouble reading at near with books and phone in right eye. Glare Patient presents with bothersome glare in both eyes gradually x few months. Patient states oncoming headlights look like halos making it very difficult to see clearly at night. Patient says she finds herself looking at the line on side of road whenever there are lights coming her way, this has made night driving difficult. Blurry vision Patient presents with blurry vision in both eyes but slightly worse in left eye x a few months. Patient states trouble seeing at near with books and phones. Denies any pain. Glare Patient presents with glare in both eyes x several months. Patient states that glare from sunlight and headlights of oncoming vehicles have become very bothersome, causing her to have to look away. Decreased vision Patient present s with gradual decreased vision in both eyes x 5 months. Patient reports difficulty with reading fine print. Decreased vision Patient returns for a 1 year evaluation of blurry vision in both eyes. Patient states shes noticed that its become difficult to focus on objects both near and far. Patient states her eyes become watery when she looses focus and needs to wipe her eyes more often. Patient denies any pain, flashes, or new floaters. Decreased vision The 66 year old female presents for an evaluation of decreased vision OU. Patient reports gradually over the last year the clarity in her vision has been getting worse. She denies pain/discomfort, flashes of light. Patient notes floaters. floaters Patient presents for 2 year check up history of floaters OU x 5 years. Pt states that no new onset, floaters have remained stable for years. Pt states that floaters are small black specs that come and go occasionally. Pt states no noticable change in vision. Glasses Rx 2 years old. No flashes of light. No pain. broken glasses pt requests glas ses Rx secondary to broken current glasses floaters not new, been th ere for 3-4 years, no worse Functional Status Date Functional Assessmen t No Information Instructions Date Instruction Additional Infor hemant Return in 1 year jennifer Arthur OD for Complete Dilated Fundus Exam. Related to Epiretinal membrane (ERM), bilateral Impression/Plan Related to Prese nce of intraocular lens Impression/Plan Related to Epire tinal membrane (ERM), bilateral RTC 1 year with RDS for long exam w/ same day OCT Related to Epiretinal membrane (ERM), bilateral Impression/Plan Related to Epire tinal membrane (ERM), bilateral Impression/Plan Related to Prese nce of intraocular lens Impression/Plan Related to Other vitreous opacities, bilateral as scheduled with RDS Related to Presence of intraocular lens Impression/Plan Related to Epire tinal membrane (ERM), bilateral Impression/Plan Related to Presb yopia Impression/Plan Related to Prese nce of intraocular lens 1.) YAG RIGHT eye2.) YAG LEFT eye3.) 2-3 week PO with RDS Related to PCO (posterior capsule opacification), right Impression/Plan Related to PCO ( posterior capsule opacification), left Impression/Plan Related to Epire tinal membrane (ERM), bilateral Impression/Plan Related to PCO ( posterior capsule opacification), right RTC 1 year with RDS for long exam w/ same day OCT Related to Epiretinal membrane (ERM), bilateral Impression/Plan Related to PCO ( posterior capsular opacification), bilateral Impression/Plan Related to Prese nce of intraocular lens Impression/Plan Related to Epire tinal membrane (ERM), bilateral Impression/Plan Related to PVD ( posterior vitreous detachment), right eye Return in 6 months w ith Silva Jreson OD for Complete Dilated Fundus Exam. Related to Presence of intraocular lens Impression/Plan Related to Prese nce of intraocular lens Return in 3-4 weeks with Silva Jerson OD for Post OP. Related to Presence of intraocular lens Impression/Plan Related to Presb yopia Impression/Plan Related to Prese nce of intraocular lens Da2 with BR, post op with RDS Re lated to Age-related nuclear cataract, right eye Impression/Plan Related to Presb yopia Impression/Plan Related to Pucke ring of macula, left eye Impression/Plan Related to Age-r elated nuclear cataract, right eye Impression/Plan Related to Prese nce of intraocular lens See SS Related to Age-r elated nuclear cataract, bilateral Impression/Plan Related to Age-r elated nuclear cataract, bilateral Impression/Plan Related to Bilat eral keratoconjunctivitis sicca, not specified as Sjogren's Impression/Plan Related to Epire tinal membrane (ERM) of left eye Impression/Plan Related to Druse n of left macula RTC 1 year with RDS for long exam Related to Age-related nuclear cataract, bilateral Impression/Plan Related to Hyper metropia, bilateral Impression/Plan Related to Age-r elated nuclear cataract, bilateral RTC 1 year with Stre eter for long exam Related to Age-related nuclear cataract, bilateral Impression/Plan Related to Age-r elated nuclear cataract, bilateral Impression/Plan Related to Bilat eral keratoconjunctivitis sicca, not specified as Sjogren's Impression/Plan Related to Hyper metropia, bilateral RTC 1 year with Stre eter for long exam Related to Age-related nuclear cataract, bilateral Impression/Plan - M onitor until patient more symptomatic. Related to Age-related nuclear cataract, bilateral Follow up - RTC 1 y ear with Jerson for long exam Related to Age-related nuclear cataract, bilateral Impression/Plan - U pdate glasses, rx given, monitor. Related to Hypermetropia, bilateral Return in 1 year wit h Jerson OD, Silva for Established Patient Long. Related to Age-related nuclear cataract, bilateral Impression/Plan - M onitor. Rx given today. Related to Hypermetropia, bilateral Impression/Plan - M onitor cataracts until more symptomatic. Related to Age-related nuclear cataract, bilateral Follow up - Return in 1 year with Jerson OD, Silva for Established Patient Long. Related to Age-related nuclear cataract, bilateral - cataracts noted. A t this time;patient is asymptomatic. Monitor for vision changes Related to Senile nuclear cataract - Return in 2 years with Bob Murray OD for Established Patient Long Related to Senile nuclear cataract - new glasses rx Related to Pres byopia - s/s of rd given . Pt. knows to call if occurs Related to Floaters Assessments Type Assessment Date assessment Epiretinal membrane (ERM), bilat eral assessment Presence of intraocular lens Jun impression Status: Stable impression Status: Stable Patient Care Teams Name Effective Dates (start - stop) Status Members No Information
--- OUTSIDE RECORDS SUMMARY | 2024-10-17 07:42 | XMS_ITS | Clinical Summary ---
Author Organization [facility] Address [address] [place] [address] Care Team Providers Care Cytology Supervisor Name Role Phone Antonietta Garza MD Primary Care Provider + Source Comments [facility],non-[facility]iliates and Associated Physician Practices is amultiple site organization consisting of ambulatory clinics and hospital sitesin [place], [place], [place] and [place]. This disclosure is being madepursuant to the Care Everywhere program and may not contain all information available regarding this patient. Last updated 18.[facility] [employer] Social History Tobacco Use Types Packs/Day Years Used Date Smoking Tobacco: Never Assessed Comments Unknown Sex and Gender Information Value Date Recorded Sex Assigned at Not on file Legal Sex Female 11:17 AM CDT Gender Identity Not on file Sexual Orientation Not on file Plan of Treatment Health Maintenance Due Date Last Done Comments BONE DENSITY TESTING 1950 COLOGUARD (AGES 45-75) - COL ON CA SCREENING 1952 COLON MONITORING 1952 COLONOSCOPY - COLON CA SCREENING 1952 CT COLONOGRAPHY - COLON CA SCREENING 1952 Colorectal Cancer Screening 1952 FIT - COLON CA SCREENING 1952 FLEX SIG - COLON CA SCREENING 1952 LIPID TESTING 1952 MAMMOGRAM 1952 HEPATITIS C SCREENING 08/31/1970 DTAP/TDAP/TD VACCINES (1 - Tdap) 09/05/1971 PNEUMOCOCCAL VACCINE 50+ (1 of 1 - PCV) 2002 ZOSTER VACCINE (1 of 2) 2002 COVID-19 VACCINE (3 - 2024-2 5 season) 2023 05/17/2020, 04/26/2020 DEPRESSION SCREENING 04/19/2024 INFLUENZA VACCINE (Season Ended) 2024 Respiratory Syncytial Virus (RSV) Vaccine Pt: or over 60 yrs (1 - 1-dose 75+ series) 09/05/2027 HEPATITIS B VACCINE Aged Out No longe r eligible based on patient's age to complete this topic HIB VACCINE Aged Out No longer eligi ble based on patient's age to complete this topic HPV VACCINE Aged Out No longer eligi ble based on patient's age to complete this topic MENINGOCOCCAL (Group B) VACCINE SHARED DECISION-MAKING Aged Out No longer eligible based on patient's age to complete this topic MENINGOCOCCAL GROUPS A/C/Y/W VACCINE Aged Out No longer eligible b ased on patient's age to complete this topic Insurance MEDICARE [facility] [place] [address] [place] [address] Care Teams Cytology Supervisor Relationship Specialty Start Date End Date Antonietta Garza MD [address] [address] [address] [place] [address] PCP - General Family Medicine 08/01/20
== END 2024-10-17 07:38 | disposition home or self-care (01) ==
LOC: ANHIMG 07:41
PROVIDERS: PCP Family Medicine; Visit Provider Family Medicine
DX: Z12.31 Encounter for screening mammogram for malignant neoplasm of breast (principal)
CPT/HCPCS: 77063; 77067